=== PATIENT | female | born 1970 | race Caucasian/White ===

== ENCOUNTER 2020-01-15 08:47 | Outpatient (REF) | payer OTHER, SELFPAY ==
[2020-01-16 13:36] LABS: PTT (LAC) Screen 30 sec (< OR = 40)
[2020-01-17 10:52] LABS: Cardiolipin IgG Ab <14 GPL; Cardiolipin IgM Ab 17 MPL
== END 2020-01-15 08:48 | disposition home or self-care (01) ==
LOC: HO.LAB 08:47
PROVIDERS: PCP Internal Medicine; Visit Provider Psychiatry & Neurology Neurology
DX: I67.9 Cerebrovascular disease, unspecified (principal)
CPT/HCPCS: 36415; 81241; 85597; 85613; 85730; 86147

== ENCOUNTER 2021-03-11 08:07 | Outpatient (REF) | payer OTHER, SELFPAY ==
[2021-03-11 09:03] LABS: COVID-19 Test Positive (Negative)
== END 2021-03-11 08:08 | disposition home or self-care (01) ==
LOC: HO.LAB 08:07
PROVIDERS: Visit Provider Internal Medicine
DX: Z20.822 Contact with and (suspected) exposure to COVID-19 (principal)
CPT/HCPCS: 36415; 87635; C9803

== ENCOUNTER 2021-03-18 14:15 | Outpatient (REF) | payer OTHER, SELFPAY ==
[2021-03-18 15:59] LABS: Binax Internal Control QC Valid; Binax Now Covid-19 Ag Negative (Negative)
== END 2021-03-18 14:16 | disposition home or self-care (01) ==
LOC: HO.LAB 14:15
PROVIDERS: Visit Provider Internal Medicine
DX: Z20.822 Contact with and (suspected) exposure to COVID-19 (principal)
CPT/HCPCS: 36415; C9803

== ENCOUNTER 2024-04-21 16:48 | Outpatient (REF) | payer OTHER, SELFPAY ==
[2024-04-21] MEDS: gadobutroL 7.5 ML VIAL IVPUSH (17:35)
== END 2024-04-21 16:49 | disposition home or self-care (01) ==
LOC: HO.MRI 16:48
PROVIDERS: PCP Internal Medicine; Visit Provider Psychiatry & Neurology Neurology
DX: R27.0 Ataxia, unspecified (principal)
CPT/HCPCS: 70553; A9585

== ENCOUNTER → 2024-04-21 17:06 | Outpatient (BNV) | payer OTHER, SELFPAY | PROVIDERS: PCP Internal Medicine; Visit Provider Radiology Diagnostic Radiology | DX: R27.0 Ataxia, unspecified (principal) | CPT/HCPCS: 70553 ==

== ENCOUNTER 2024-06-14 09:23 | Day surgery (SDC) | payer OTHER, SELFPAY ==
--- OUTSIDE RECORDS SUMMARY | 2024-04-30 14:47 | XMS_ITS | Clinical Summary ---
Author Organization [facility] Address [address] [place] [address] Phone Care Team Providers Care Oak Tanner Name Role Phone Rosalind Sorensen MD Primary Care Prov ider Allergies No known active allergies Medications mometasone (NASONEX) 50 mcg/actuation nasal spray SPRAY 2 SPRAYS BY NASAL ROUTE DAILY 51 mL 4 Active ferrous sulfate 325 mg (65 mg elemental iron) tablet Take 1 tablet (325 mg total) by mouth 1 (one) time each day. Active levonorgestreL (MIRENA) 21 mcg/24hr (up to 8 yrs) 52 mg IUD 1 Device (1 each total) by intrauterine route 1 (one) time. 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 I explained that based on US report, Ddx includes cervical polyp, cervical fibroid, or cervical malignancy. Although the latter is less likely, it cannot be ruled out without at least a biopsy. I explained that MRI can give us a better idea of the etiology of this mass, but it will not give us a diagnosis. Explained that we could attempt to perform this in the office given it is visible with speculum exam, but that depending on the etiology and due to lower tone in the cervix, I have some concerns about significant bleeding which may be difficult to control in the office. She agreed with plan to proceed in the OR. I explained that I will assess the mass at the time of her procedure and will use my clinical discretion regarding whether it should just be biopsied followed by hysterectomy prn vs excised based on my impression and concern for bleeding. Given its size, I suspect it will more likely be biopsied unless it appears to be a broad based polyp. Explained it is not always clear what the mass is just by looking at it, but we will be judicious. I explained that her cervical mass may or may not be contributing to her heavy bleeding. Given she has started OCP with significant improvement in flow this past month, I suspect it may not be contributing. As such, if the mass returns benign, even if only able to sample and not remove it, a hysterectomy may not be necessary. She understood and agreed. I reviewed risks of the procedure including bleeding as discussed above with possible, although unlikely need for blood transfusion with inherent infectious and inflammatory risks, as well as risk of infection, uterine perforation, and/or damage to surrounding organs including bowel, bladder, blood vessels, and nerves. She voiced understanding and agreed. Consent was signed. White matter abnormality on MRI of brain 019 Iron deficiency anemia due to chronic blood loss 11/20/2018 Overview (02/01/2024): S/p transfusion x 2 on 12/25 prior to cervical myomectomy Last Assessment & Plan: Continue iron Menorrhagia with irregular cycle 11/20/2018 Overview (02/01/2024): Last Assessment & Plan: Given already heavier menstrual bleeding in the setting of therapeutic anticoagulation, I recommend we consider a progestin only method to stop bleeding and allow recovery of blood count. I explained this would likely best be accomplished with use of Provera 10 mg daily. In the long run, given her history and now contraindication to E2 use, she would be a good candidate for Mirena IUD. I explained that while her previous IUD was expelled, this may have been related to her submucosal fibroid and may not happen again. She was in agreement with this. She should also have her Hgb checked again today. I discussed this plan with Dr. Aguilar in Oncology at [facility] and he agrees. He will see her in the office within the next two days. Pt informed to call and arrange this and agrees. She will start Provera today and continue until we are able to place her Mirena IUD in the near future. IUD (intrauterine device) in place 06/17/2015 Overview (02/01/2024): Mirena 01/2019 Vitamin D deficiency 06/24/2011 Allergic rhinitis 03/09/2010 Encounters Date Type Department Care Team Description 04/26/2024 2:30 PM EST Treatment [address] [phone] Vivi Peralta, PT Neck pain (Primary Dx); Poor posture 04/19/2024 3:30 PM EST Nutrition Internal Medicine [address] [phone] Carla Cheema, TOMMY Obesity (BMI 30.0-34.9) (Primary Dx); Overweight 04/19/2024 2:30 PM EST Treatment [address] [phone] Vivi Peralta, PT Neck pain (Primary Dx); Poor posture 04/09/2024 3:59 PM EST - 04/09/2024 11:59 PM EST Hospital Encounter Radiology Department - [address] [phone] Encounter for screening mammogram for breast cancer Discharge Disposition: Home or Self Care 04/05/2024 2:45 PM EST Evaluation [address] [phone] Vivi Peralta, PT Neck pain (Primary Dx); Poor posture 03/01/2024 2:30 PM EST Treatment [facility] [address] [phone] Vivi Peralta, PT Low back pain, unspecified back pain laterality, unspecified chronicity, unspecified whether sciatica present (Primary Dx); Neck pain; Poor posture 02/07/2024 12:45 PM EST Office Visit [address] [phone] Delia Bowden PA Neck pain (Primary Dx); Chronic midline thoracic back pain 02/06/2024 Nurse Triage [address] [phone] Rosalind Carty MD Neck Pain 02/02/2024 2:30 PM EST Treatment [address] [phone] Vivi Peralta, PT Low back pain, unspecified back pain laterality, unspecified chronicity, unspecified whether sciatica present (Primary Dx) from Last 3 Months Immunizations Name Administration Dates Next Due Influenza Quadravalent, MDCK , 0.5ml, preservative free (Flucelvax) 6mo and older 11/22/2022,12/14/2021,12/28/2020,2018 Influenza Quadrivalent, 0.5m l, preservative free (Fluarix; FluLaval; Fluzone) ages 6mo and older (Afluria) 3yo and older 12/12/2019 Influenza trivalent, with preservative (Fluzone; Afluria) 6mo and older 11/27/2023,01/07/2016 Influenza, Unspecified 12/22/2018 Td Tetanus diptheria (Tdvax) 7yo and older 11/09/2005 Tdap Tetanus diptheria acell ular pertussis (Boostrix; Adacel) 7yo and older 11/22/2022,05/29/2012 Zoster recombinant (Shingrix ) 19yo and older 12/02/2022 Surgical History Surgery Date Site/Laterality Comments SECTION PROCEDURE: HISTORICAL DELIVERY; COMMENT: x1 EYE SURGERY Bilateral PROCEDURE: HISTORICAL EYE SURGERY; COMMENT: Lasik OTHER SURGICAL HISTORY PROCEDURE: [place] UNLISTED LAPAROSCOPY PROCEDURE UTERUS; COMMENT: fibroid removal Medical History Medical History Date Comments Allergic rhinitis 03/09/2010 DX:Allergic rh initis History of non-ST elevation myocardial infarction (NSTEMI) DX:History of non-ST el evation myocardial infarction (NSTEMI) History of pulmonary embolism 12/31/2018 DX :History of pulmonary embolism; COMMENT: Following hysteroscopic myomectomy 12/28/18, on OCP at the time. Per heme, anticoag x 6 mos then discontinue, finished treatment in 2020 due to not being able to see someone during COVID Iron deficiency anemia due t o chronic blood loss 11/20/2018 DX:Iron deficiency anemia du e to chronic blood loss; COMMENT: S/p transfusion x 2 on 12/25 prior to cervical myomectomy Family History Medical History Relation Name Comments No Known Problems Brother 1 No Known Problems Brother 2 No Known Problems Daughter Hypertension Father No Known Problems Maternal Grandfather No Known Problems Maternal Grandmother No Known Problems Mother No Known Problems Other Hypertension Paternal Grandfather Hypertension Paternal Grandmother No Known Problems Sister 1 No Known Problems Sister 2 Hypertension Sister 3 Other: Heart disease Sister 4 hypothy roidism Breast cancer Neg Hx Colon cancer Neg Hx Ovarian cancer Neg Hx Uterine cancer Neg Hx Relation Name Status Comments Brother 1 Alive Brother 2 Alive Daughter Father Alive htn Maternal Grandfather Maternal Grandmother Mother Alive foot problems Other Paternal Grandfather Paternal Grandmother Sister 1 Alive Sister 2 Alive Sister 3 Sister 4 Social History Tobacco Use Types Packs/Day Years Used Date Smoking Tobacco: Never Smokeless Tobacco: Never Tobacco Cessation:Counseling Given: Not Answered Alcohol Use Standard Drinks/Week Comments Yes 0 (1 standard drink = 0.6 oz pur e alcohol) Comments Unknown Sex and Gender Information Value Date Recorded Sex Assigned at Not on file Legal Sex Female 6:51 PM EST Gender Identity Not on file Sexual Orientation Not on file Obstetrics History Para Term AB IAB SAB Ectopic Multiple Livin g Live Births 2 2 2 2 Date Outcome GA Total Labor Labor/2nd/3rd Weight Sex Type Anes PTL Yoanna A1 A5 Name Clin Term Term Last Filed Vital Signs Vital Sign Reading Time Taken Comments Blood Pressure 98/61 02/07/2024 12:44 PM EST Pulse 77 02/07/2024 12:44 PM EST Temperature 36.8 ??C (98.3 ??F) 02/07/2024 12:[address] Respiratory Rate 15 02/07/2024 12:44 PM EST Oxygen Saturation - - Inhaled Oxygen Concentration - - Weight 78.9 kg (174 lb) 04/19/2024 4:11 PM EST Height 160 cm (5' 3 ) 04/19/2024 4:11 PM EST Body Mass Index 30.82 04/19/2024 4:11 PM EST Plan of Treatment Upcoming Encounters Date Type Department Care Team (Late st Contact Info) Description 05/01/2024 2:00 PM EST Office Visit Obstetrics and Gynecology [address] [phone] Virginia Vazquez CN [address] [place] [address] 05/03/2024 2:30 PM EST Treatment [facility] [address] [phone] Vivi Peralta, PT 05/17/2024 2:30 PM EST Treatment [address] [phone] Vivi Peralta, PT 05/24/2024 2:30 PM EDT Treatment [facility] [address] [phone] Vivi Peralta, PT 08/16/2024 3:30 PM EDT Nutrition Internal Medicine [facility] [address] [phone] Carla Cheema, RD [address] [place] [phone] 12/02/2024 3:00 PM EDT Office Visit Adult Medicine [facility] - [address] [phone] Rosalind Sorensen MD [address] [place] [address] Health Maintenance Due Date Last Done Comments Hepatitis B Vaccines (1 of 3 - 19+ 3-dose series) 1989 Pneumococcal Vaccine: 50+ Years (1 of 1 - PCV) 2020 Depression Screening 02/19/2022 Social Influencers of Health Screening 02/19/2022 Zoster Vaccines (2 of 2) 01/27/2023 12/02/2022 COVID-19 Vaccine ( season) 2023 12/02/2022, 03/29/2021, 07/23/2020, Additional history exists Breast Cancer Screening 04/09/2026 04/09/19 25, 03/29/2023, 03/28/2022, Additional history exists Colorectal Cancer Screening: Colonoscopy 09/07/2026 09/07/2016 Cervical Cancer Screening: HPV 06/04/2027 06/03/2022 Cholesterol Screening (Lipid Panel) 04/26/2029 04/26/2024, 12/04/2023, 12/04/2023 DTaP,Tdap,and Td Vaccines (4 - Td or Tdap) 11/22/2032 11/22/2022, 05/29/2012, 11/09/2005 HIV Screening Completed 06/03/2022 Hepatitis C Screening Completed 11/22/2022 Influenza Vaccine Completed 11/27/2023, , 12/14/2021, Additional history exists HIB Vaccines Aged Out No longer eligi ble based on patient's age to complete this topic HPV Vaccines Aged Out No longer eligi ble based on patient's age to complete this topic Hepatitis A Vaccines Aged Out No long er eligible based on patient's age to complete this topic IPV Vaccines Aged Out No longer eligi ble based on patient's age to complete this topic MMR Vaccines Aged Out No longer eligi ble based on patient's age to complete this topic Meningococcal ACWY Vaccine Aged Out N o longer eligible based on patient's age to complete this topic Meningococcal B Vacine Aged Out No lo nger eligible based on patient's age to complete this topic Pneumococcal Vaccine: Pediatrics (0 to 5 Years) and At-Risk Patients (6 to 64 Years) Aged Out No longer eligible based on patient's age to complete this topic RSV Immunization Patients Under 20 months Aged Out No longer eligible based on patient's age to complete this topic Varicella Vaccines Aged Out No longer eligible based on patient's age to complete this topic Procedures Procedure Name Priority Date/Time Associated Diagnosis Comments LUPUS ANTICOAGULANT WITH REFLEX TO MIXING STUDIES Routine 04/26/2024 8:02 AM EST Abnormal MRI of the head TREPONEMA PALLIDUM ANTIBODY WITH REFLEX TO RPR AND PARTICLE AGGLUTINATION Routine 04/26/2024 8:02 AM EST Abnormal MRI of the head VIDAL IFA WITH TITER AND PATTERN Routine 04/26/2024 8:02 AM EST Abnormal MRI of the head LIPID PANEL WITH REFLEX TO DIRECT LDL Routine 04/26/2024 8:02 AM EST Abnormal MRI of the head CARDIOLIPIN ANTIBODY Routine 04/26/2024 8:02 AM EST Abnormal MRI of the head MG MAMMO DIGITAL SCREENING W ASHOK BILAT Routine 04/09/2024 4:22 PM EST Encounter for screening mammogram for breast cancer HEPATITIS C SCREENING Routine 11/22/2022 HPV Routine 06/03/2022 HIV SCREENING Routine 06/03/2022 COLONOSCOPY Routine 09/07/2016 from Last 3 Months or Most Recently Relevant to Health Maintenance Results * Treponema pallidum antibody with reflex to RPR and particle agglutination (04/26/2024 8:02 AM EST) T. Pallidum Antibodies Negative Negative LAB CHEMISTRY METHOD 04/26/2024 10:36 AM EST [facility] Blood Venous blood specimen / Unknown Venipuncture / Unknown 04/26/2024 8:02 AM EST 04/26/2024 8:02 AM EST Jason Carrion MD LAB BLOOD ORDERABLES Final Result [facility] [address] [place] [address], [place] [phone] * (ABNORMAL) Lipid panel with reflex to direct LDL (04/26/2024 8:02 AM EST) [facility] Cholesterol 180 0 - 200 mg/dL LAB CHEMISTRY METHOD 04/26/2024 10:23 AM EST [facility] Triglycerides 93 0 - 150 mg/dL LAB CHEMISTRY METHOD 04/26/2024 10:23 AM [facility] HDL 44 >=40 mg/dL LAB CHEMISTRY METHOD 04/26/2024 10:23 AM [facility] LDL Calculated 117(H) 0 - 100 mg/dL LAB CHEMISTRY METHOD 04/26/2024 10:23 AM [facility] VLDL Cholesterol Amado 18.6 mg/dL LAB CHEMISTRY METHOD 04/26/2024 10:23 AM [facility] Non HDL Chol. (LDL+VLDL) 136 <145 mg/dL LAB CHEMISTRY METHOD 04/26/2024 10:23 AM [facility] Chol/HDL Ratio 4.1 0.0 - 4.4 LAB CHEMISTRY METHOD 04/26/2024 10:23 AM [facility] Blood Venous blood specimen / Unknown Venipuncture / Unknown 04/26/2024 8:02 AM EST 04/26/2024 8:02 AM EST Jason Carrion MD LAB BLOOD ORDERABLES Final Result [facility] [address] [place] [address], [place] [phone] * VIDAL IFA with titer and pattern (04/26/2024 8:02 AM EST) VIDAL Negative Negative 04/26/2024 1:23 PM EST [facility] Blood Venous blood specimen / Unknown Venipuncture / Unknown 04/26/2024 8:02 AM EST 04/26/2024 8:02 AM EST Jason Carrion MD LAB BLOOD ORDERABLES Final Result [facility] [address] [place] [address], [place] [phone] * Lupus anticoagulant with reflex to mixing studies (04/26/2024 8:02 AM EST) APTT 41 <43 Sec(s) 04/30/2024 12:48 PM EST [facility] aPTT Mix 1:1 NA Sec(s) 04/30/2024 12:48 PM EST [facility] Hexagonal Phase Neutralization NA 04/30/2024 12:48 PM EST [facility] Dilute Colt Viper Venom 33 <44 Sec(s) 04/30/2024 12:48 PM EST [facility] DRVVT 1:1 Mix NA Sec(s) 04/30/2024 12:48 PM EST [facility] DRVVT Confirmation NA 2024 12:48 PM EST [facility] Interpretation SEE BELOW 04/30/2024 12:48 PM EST [facility] Comment: Lupus anticoagulant not detected. Test performed at [facility], [address] , [place], [place] ??[address] ? [phone] Saniya Galeana MD, PhD - Forensic Photographer Blood Venous blood specimen / Unknown Venipuncture / Unknown 04/26/2024 8:02 AM EST 04/26/2024 8:02 AM EST Jason Carrion MD LAB BLOOD ORDERABLES Final Result [facility] [address] [place] [address] * Cardiolipin antibody (04/26/2024 8:02 AM EST) Cardiolipin Antibody Screen Negative Negative LAB CHEMISTRY METHOD 04/29/2024 10:15 AM EST [facility] Blood Venous blood specimen / Unknown Venipuncture / Unknown 04/26/2024 8:02 AM EST 04/26/2024 8:02 AM EST Jason Carrion MD LAB BLOOD ORDERABLES Final Result [facility] [address] [place] [address], [place] [phone] * MG Mammo Digital Screening w Ashok bilat (04/09/2024 4:22 PM EST) Anatomical Region Laterality Modality Breast Bilateral Mammography 04/10/2024 6:24 PM EST Impressions 04/10/2024 6:26 PM EST No mammographic evidence of malignancy. BI-RADS CATEGORY: 1 - NEGATIVE RECOMMENDATION: Screening bilateral mammogram is recommended in 1 year. Mammo Location: [facility], [address] [place] [address], [id number], . -------- FINAL REPORT -------- Dictated By: Kyra Alejo Dictated Date: 04/10/2024 18:24 ET Assigned Physician: Kyra Alejo Reviewed and Electronically Signed By: Kyra Alejo Signed Date: 04/10/2024 18:26 ET Workstation ID: [id number] Transcribed By: Self Edit Transcribed Date: 04/10/2024 18:24 ET Narrative 04/10/2024 6:26 PM EST Bilateral screening mammogram. CLINICAL: 53 years old, Female, routine annual exam. COMPARISON: Prior mammograms, latest from 03/29/2023 ?? TECHNIQUE: Bilateral MLO and CC views were obtained digitally with 2-D C views and 3-D mammogram (digital breast tomosynthesis). Computer-aided detection was utilized in evaluation of this exam (CAD). FINDINGS: There is no evidence of suspicious mass or architectural distortion. ??No worrisome calcifications are evident. ??There has been no significant change from prior exam(s). ?? BREAST DENSITY: C - The breasts are heterogeneously dense which may obscure small masses. Procedure Note Kyra Alejo MD - 04/10/2024 Bilateral screening mammogram. CLINICAL: 53 years old, Female, routine annual exam. COMPARISON: Prior mammograms, latest from 03/29/2023 TECHNIQUE: Bilateral MLO and CC views were obtained digitally with 2-D Cviews and 3-D mammogram (digital breast tomosynthesis). Computer-aideddetection was utilized in evaluation of this exam (CAD). FINDINGS: There is no evidence of suspicious mass or architectural distortion. Noworrisome calcifications are evident. There has been no significantchange from prior exam(s). BREAST DENSITY: C - The breasts are heterogeneously dense which mayobscure small masses. IMPRESSION: No mammographic evidence of malignancy. BI-RADS CATEGORY: 1 - NEGATIVE RECOMMENDATION: Screening bilateral mammogram is recommended in 1 year. Mammo Location: [facility], [address] [place] [address], [id number], . -------- FINAL REPORT -------- Dictated By: Kyra Alejo Dictated Date: 04/10/2024 18:24 ET Assigned Physician: Kyra Alejo Reviewed and Electronically Signed By: Kyra Alejo Signed Date: 04/10/2024 18:26 ET Workstation ID: [id number] Transcribed By: Self Edit Transcribed Date: 04/10/2024 18:24 ET Rosalind Sorensen MD IM BI PROCEDURES Final Result * Hepatitis C Screening (11/22/2022) Hepatitis C Screening abstracted Historical Provider HEALTH MAINTENANCE Final Result * Cervical Cancer Screening: HPV (06/03/2022) Cervical Cancer Screening: HPV abstracted, negative Historical Provider HEALTH MAINTENANCE Final Result * HIV Screening (06/03/2022) HIV Screening abstracted Historical Provider HEALTH MAINTENANCE Final Result * Colonoscopy (09/07/2016) Colonoscopy abstracted, no interpretation Anatomical Region Laterality Modality Other Historical Provider HEALTH MAINTENANCE Final Result from Last 3 Months or Most Recently Relevant to Health Maintenance Insurance [facility] Care Teams Oak Tanner Relationship Specialty Start Date End Date Rosalind Sorensen MD [address] [place] [id number] PCP - General Internal Medicine 10/11/21
--- OUTSIDE RECORDS SUMMARY | 2024-04-30 14:47 | XMS_ITS | Encounter Summary ---
Author Organization [employer] Address [address] [place] [address] Care Team Providers Care Manager Highway Name Role Phone Rosalind Sorensen MD Primary Care Prov ider Reason for Visit * Consultation (Routine) - Authorized Specialty Diagnoses / Procedures Referred By Suhail garcía Referred To Contact Physical Therapy Diagnoses Neck pain Poor posture Delia Bowden PA [address] [place] [address] Phone: tel: fax: Referral ID Status Reason Start Date Expiration Date Visits Requested Visits Authorized [id number] Authorized Specialty Services Required 02/19/2024 02/18/2025 25 25 Encounter Details Date Type Department Care Team (Late st Contact Info) Description 04/26/2024 2:30 PM EST Treatment [facility] Outpatient [address] [phone] Vivi Peralta, PT Neck pain (Primary Dx); Poor posture Social History Tobacco Use Types Packs/Day Years Used Date Smoking Tobacco: Never Smokeless Tobacco: Never Alcohol Use Standard Drinks/Week Comments Yes 0 (1 standard drink = 0.6 oz pur e alcohol) Comments Unknown Sex and Gender Information Value Date Recorded Sex Assigned at Not on file Legal Sex Female 6:51 PM EST Gender Identity Not on file Sexual Orientation Not on file documented as of this encounter Progress Notes * Vivi Peralta PT - 04/26/2024 2:30 PM EST [facility] - Outpatient PHYSICAL THERAPY DAILY TREATMENT NOTE - OP Date: 04/26/2024 Visit Number: 3 Patient Name: Rosalind Cummins : 1970 Age: 53 y.o. Gender: female Diagnosis: ICD-10-CM ICD-9-CM 1. Neck pain M54.2 723.1 2. Poor posture R29.3 781.92 Date of Onset/Surgery: 01/04/2024 Referring Provider: Delia Bowden PA Insurance: Payor: [employer] [facility] [place] [employer] / Plan: [facility] FUNDED HMO / Product Type: *No Product type* / Patient Identified by: Vivi Peralta PT Language: Speaks and understands Wolof as preferred language with no cook railroad required Medications: Current Outpatient Medications on File Prior to Visit Medication Sig Dispense Refill ferrous sulfate 325 mg (65 mg elemental iron) tablet Take 1 tablet (325 mg total) by mouth 1 (one) time each day. levonorgestreL (MIRENA) 21 mcg/24hr (up to 8 yrs) 52 mg IUD 1 Device (1 each total) by intrauterineroute 1 (one) time. mometasone (NASONEX) 50 mcg/actuation nasal spray SPRAY 2 SPRAYS BY NASAL ROUTE DAILY 51 mL 0 No current facility-administered medications on file prior to visit. Allergies: has No Known Allergies. Precautions: none Fall risk: No SUBJECTIVE Subjective Report: She has had a cold this week. Not doing stretches as much because of that so hassome tightness/pain in neck. Chart Reviewed: Yes Pain: TREATMENT INTERVENTION: Therapeutic Exercise: (20 min) UBE x 4 min 2/2 Rows orange theraband 2 x 10 Shoulder extensions orange theraband 2 x 10 Pec stretch in door 4 x 15-20 sec Seated chin tucks x 5, 5 sec hold Manual Therapy: Seated STM to bilateral UT, and bilateal UT and LS TP release (8 min total) Home exercise program- Access Code: [email or web address] - Seated Cervical Retraction - 1-2 x daily - 7 x weekly - 1 sets - 10 reps - 5s hold - Doorway Pec Stretch at 90 Degrees Abduction - 1-2 x daily - 7 x weekly - 1 sets - 3-4 reps - 15-20s hold - Gentle Levator Scapulae Stretch - 1-2 x daily - 7 x weekly - 1 sets - 3 reps - 15-20s hold - Standing Shoulder Row with Anchored Resistance - 1 x daily - 3-7 x weekly - 2 sets - 10 reps - Shoulder extension with resistance - Neutral - 1 x daily - 3-7 x weekly - 2 sets - 10 reps ASSESSMENT/Response to Treatment Good Feeling slightly better and better cervical SB ROM. R UT TP noted and got better with manual therapy. Practice bands again and if feel alright, will update home exercise program next session. Patient Education: Education provided: update home exercise program Education Provided To: Patient utilizing Explanation and Printed Material mode(s) of education Response to Education: Verbal Understanding PLAN POC Development/Review: No Change in the Plan of Care; Participants: Patient Interventions Time Entry: Modalities: Therapeutic procedures: Manual Therapy Time Entry: 8 Therapeutic Exercise Time Entry: 20 Total Treatment Time: 28 Documentation completed by Vivi Peralta PT documented in this encounter Plan of Treatment Upcoming Encounters Date Type Department Care Team (Late st Contact Info) Description 05/01/2024 2:00 PM EST Office Visit Obstetrics and Gynecology - [address] [phone] Virginia Vazquez, [address] [address] 05/03/2024 2:30 PM EST Treatment [address] [phone] Vivi Peralta, PT 05/17/2024 2:30 PM EST Treatment [address] [phone] Vivi Peralta, PT 05/24/2024 2:30 PM EDT Treatment [address] [phone] Vivi Peralta, PT 08/16/2024 3:30 PM EDT Nutrition Internal Medicine - [place] [address] [facility] 200 [place] [phone] Carla Cheema, RD 175 [place] [phone] 12/02/2024 3:00 PM EDT Office Visit Adult Medicine [facility] [address] [place] [phone] Rosalind Sorensen MD [address] [place] [phone] documented as of this encounter Visit Diagnoses Diagnosis Neck pain- Primary Cervicalgia Poor posture Abnormal posture documented in this encounter Care Teams Manager Highway Relationship Specialty Start Date End Date Rosalind Sorensen MD [address] [place] [address] PCP - General Internal Medicine 10/11/21 documented as of this encounter
--- OUTSIDE RECORDS SUMMARY | 2024-04-30 14:47 | XMS_ITS | Encounter Summary ---
Author Organization [employer] Address [address] [place] [address] Care Team Providers Care Livestock Trader Name Role Phone Rosalind Sorensen MD Primary Care Prov ider Reason for Visit * Reason Comments Obesity * Consultation (Routine) - Closed Specialty Diagnoses / Procedures Referred By Suhail garcía Referred To Contact Nutrition Diagnoses Overweight Herminia Ardon MD [address] [place] [address] Phone: tel: fax: Carla Cheema RD [address] [place] [address] Phone: tel: Referral ID Status Reason Start Date Expiration Date V isits Requested Visits Authorized [id number] Closed Specialty Services Required 12/30/2023 12/29/2024 1 1 Encounter Details Date Type Department Care Team (Late st Contact Info) Description 04/19/2024 3:30 PM EST Nutrition Internal Medicine - [place] 175 [facility] [address] [place] [phone] 175 [place] [address] Obesity (BMI 30.0-34.9) (Primary Dx); Overweight Social History Tobacco Use Types Packs/Day Years [...] on file documented as of this encounter Last Filed Vital Signs Vital Sign Reading Time Taken Comments Blood Pressure - - Pulse - - Temperature - - Respiratory Rate - - Oxygen Saturation - - Inhaled Oxygen Concentration - - Weight 78.9 kg (174 lb) 04/19/2024 4:11 PM EST Height 160 cm (5' 3 ) 04/19/2024 4:11 PM EST Body Mass Index 30.82 04/19/2024 4:11 PM EST documented in this encounter Progress Notes * Carla Cheema RD - 04/19/2024 3:30 PM EST Images from the original note were not included. Contact info: Carla Cheema MS, RDN, LDN Registered Dietitian - Adult Medicine [address] [place] [address] [email or web address] W: [phone] Patient goals: Exercise: include as tolerated Hydration: goal to include 7-8 cups fluids daily Sleep: aim for 7+ hours restful sleep nightly Dietary pattern: include protein and fiber every 3-4 hours to support active metabolism At all meals be sure to include protein foundation (lean animal-based OR plant- based options) and balance plate with proper portion (1/4 plate) whole grain or starch (3-5g fiber per serving) and natural and vibrant color from fruit or vegetable. Fruit recommendations due to more fiber (edible skin and seeds): 1. All berries 2. Clinch, apples, pears, peaches, plums, etc. 3. Melons such as honeydew, canteloupe, watermelon, etc. 4. Tropical fruits: banana (1/2 only), chepe, pineapple, etc. Low sugar yogurts without sugar alternatives: Siggi's, Chobani less sugar, Fage etc. Vegetables 2x/day 200kcal protein shake in AM after workouts Goal to eat within 1 hour after workout; preference not to skip breakfast on these days [email or web address] * Carla Cheema RD - 04/19/2024 3:30 PM EST INITIAL NUTRITION CONSULT Date of Service: 04/19/2024 Referred by: Dr. Ardon Referral reason: obesity Background info: Pt is a 53 y.o. y/o female who seeks weight loss support. Pt also presents with low D, HANNAH, h/o NSTEMI. Pt attended today's appointment alone. 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 Spouse Readiness to change the diet: Yes Previously met with a dietitian/operations lead: No Alcohol: Yes 2x/week Smoking: No Family History: Family History Problem Relation Name Age of Onset No Known Problems Mother Hypertension Father No Known Problems Sister No Known Problems Sister No Known Problems Brother No Known Problems Brother Hypertension Paternal Grandfather Hypertension Paternal Grandmother Hypertension Sister Other (Other: Heart disease) Sister hypothyroidism No Known Problems Daughter No Known Problems Maternal Grandmother No Known Problems Maternal Grandfather No Known Problems Other Breast cancer Neg Hx Ovarian cancer Neg Hx Colon cancer Neg Hx Uterine cancer Neg Hx Nutrition & Lifestyle History: What are your main motivators for changing your diet? to help resolve comorbidities What, if any, changes have you tried to make in regard to your diet in the past? Single diet attempt What obstacles have you faced or might you face when trying to improve your diet? Prefering convenience GI issues: Constipation, bloating Food Allergies/Intolerances: none reported Food dislikes: vegetables How would you rate your energy? Fair How would you rate your quality of sleep? Fair How many hours of sleep do you get per night? 5 hours Physical Activity Exercise: Yes, TM walking, machines Frequency: 4 days per week, 30 minutes in duration Barriers to exercise? Back issues Anthropometrics: Weight: Wt Readings from Last 1 Encounters: 04/19/24 78.9 kg (174 lb) Height: Ht Readings from Last 1 Encounters: 04/19/24 1.6 m (63 ) Body mass index is 30.82 kg/m??. (obesity - grade I) Diet Recall: Vit/mineral supplement: iron, turmeric, MVI Wake-up: 5am 9am Breakfast: muffin and 1 cup regular coffee w/ whole milk, 2 sugar packets; 12-1pm Lunch: turkey (sometimes with salami) and cheese sandwich with sheldon, lettuce and tomato on wheat bread; less chips, cranberry juice Afternoon Snack: 3 oz nuts, chips or tea (honey) 8:O0pm Dinner: limited vegetables, salmon, sprouts, steak tips OR hot dog and salad, oil/vinegar ORkale and sausage soup, carrots, crackers PM snacking: chocolate Beverages: Water, cran soda, Tea, cranberry juice, and Coffee Dines out: 1-2 x weekly Monday brunch, Monday pizza and Monday fast food Pace of eating: not discussed Lab History: Lab Results Component Value Date HGBA1C 4.8 11/13/2018 CHOL 188 12/04/2023 LDL 119 (A) 12/04/2023 HDL 45 12/04/2023 TRIG 121 12/04/2023 Medications: Current Outpatient Medications Medication Instructions ferrous sulfate 325 mg (65 mg elemental iron) tablet 1 tablet, oral, Daily levonorgestreL (MIRENA) 21 mcg/24hr (up to 8 yrs) 52 mg IUD 1 each, intrauterine, Once mometasone (NASONEX) 50 mcg/actuation nasal spray SPRAY 2 SPRAYS BY NASAL ROUTE DAILY COMPARATIVE STANDARDS AND ESTIMATED NEEDS Kilocalorie Need: 1900kcals OR 1400kcals to lose 1-2lb/wk Method used for estimating needs: [place] [address] [place] Equation x activity factor (1.375) Protein: 53-70g (15-20% kcals) CHO: 155g (45% kcals) Fluid: 1584mls Nutrition assessment: Pt is 53 y.o. Female who may skip breakfast, include midday lunch, occasionally an afternoon snack and balanced dinner. Few SSBs. Vegetables 1x/day recently. Pt is avoiding certain food/drink which may be bladder irritants. Exercise is now included appropriately. Hydration subadequate per pt report. Nutrition Diagnoses: Obesity related to history of excess energy intake as evidenced by BMI of 30.82. Nutrition Interventions: Discussed importance of eating at least 3 meals per day and the impact on metabolism, Discussed the need to have protein with each meal and snack, Discussed the plate method and balanced meals, Discussed the importance of drinking enough water, and inclusion of vegetablesEnergy Balance: Basic health eating, Skipped meals, and Healthy snacks Fluid Intake: Inadequate hydration Protein Intake: Protein each meal, Liquid protein supplements, Non- animal proteins, and Lean protein sources Fat and Cholesterol Intake: on Detrimental fats Carbohydrate and Fiber Intake: PlateMethod and Increase Fiber Intake Nutrition Education: Discussed the importance of fueling the body properly with appropriate foods. We reviewed the plate method to educate on food groups, portion sizes and number of servings recommended daily. Discussed strategies to consume more vegetables in diet which do not require much cooking or food preparation. Highlighted benefits of consuming whole grains instead of processed grains regarding overall nutrition and satiety. Types and amounts of fruit and vegetables were identified andencouraged. Proper meal planning was discussed, specifically including protein and quality carbohydrates at each meal, with the need for colorful produce making up 1/2 the plate or bowl. Pt was discouraged from skipping meals and instead encouraged to include smaller, portion-controlled meals and/or snacks every 3-4 hours to support metabolism, energy levels and weight loss efforts. Snacks are encouraged only if warranted, and should be intentional and portioned and should includeprotein and fiber-rich carbohydrate. Hydration was reviewed in that urine should be light in color and concentration. Fluids should include water, unsweetened teas, seltzers, low-fat dairy, etc and should limit juices, sodas and other sugar-sweetened beverages. Exercise was reviewed and encouraged as tolerated to support overall health and weight loss goals. We also discussed the importance of strength training to improve metabolic rate. Literature Provided: Using the plate method for a balanced meal plan handout, Goal Sheets, RD Contact Information, and Wt Management Tips handout Monitoring/Evaluation: Monitor weight, Monitor progress towards nutrition goals, and Monitor compliance with program overall Reviewed current weight, checked food recall, reviewed labs and questioned patient to confirm understanding and clarifications provided as needed. Patient goals: Exercise: include as tolerated Hydration: goal to include 7-8 cups fluids daily Sleep: aim for 7+ hours restful sleep nightly Dietary pattern: include protein and fiber every 3-4 hours to support active metabolism At all meals be sure to include protein foundation (lean animal-based OR plant- based options) and balance plate with proper portion (1/4 plate) whole grain or starch (3-5g fiber per serving) and natural and vibrant color from fruit or vegetable. Fruit recommendations due to more fiber (edible skin and seeds): 1. All berries 2. Clinch, apples, pears, peaches, plums, etc. 3. Melons such as honeydew, canteloupe, watermelon, etc. 4. Tropical fruits: banana (1/2 only), chepe, pineapple, etc. Low sugar yogurts without sugar alternatives: Siggi's, Chobani less sugar, Fage etc. Vegetables 2x/day 200kcal protein shake in AM after workouts Goal to eat within 1 hour after workout; preference not to skip breakfast on these days [email or web address] Follow-Up RD to see patient for follow-up in 4 months. Number of MEU accrued after this appointment ( year total): 4 MEU (60 minutes) Visit Time: The total time of this visit was 60 mins minutes of which we spent 60 mins minutes in direct [id number] consultation for nutrition counseling. Carla Cheema MS, RDN, LDN Registered Dietitian NUTRITION SERVICES documented in this encounter Plan of Treatment Upcoming Encounters Date Type Department Care Team (Late st Contact Info) Description 05/01/2024 2:00 PM EST Office Visit Obstetrics and Gynecology - [address] [phone] Virginia Vazquez CNM [address] [place] [address] 05/03/2024 2:30 PM EST Treatment [address] [phone] Vivi Peralta, TAYO 05/17/2024 2:30 PM EST Treatment [facility] [address] [phone] Vivi Peralta, PT 05/24/2024 2:30 PM EDT Treatment [facility] [address] [phone] Vivi Peralta, PT 08/16/2024 3:30 PM EDT Nutrition Internal Medicine - [place] 175 [facility] 200 [place] [phone] Carla Cheema, RD 175 [place] [phone] 12/02/2024 3:00 PM EDT Office Visit Adult Medicine [address] [phone] Rosalind Sorensen MD [address] [place] [address] documented as of this encounter Visit Diagnoses Diagnosis Obesity (BMI 30.0-34.9)- Primary Overweight documented in this encounter Orders Outpatient Referral Count Last Ordered Date Ordered Date AMB REFERRAL TO NUTRITION SERVICES 1 2024 documented in this encounter Care Teams Livestock Trader Relationship Specialty Start Date End Date Rosalind Sorensen MD [address] [place] [address] PCP - General Internal Medicine 10/11/21 documented as of this encounter
--- OUTSIDE RECORDS SUMMARY | 2024-04-30 14:47 | XMS_ITS | Encounter Summary ---
Author Organization [employer] Address [address] [place] [address] Care Team Providers Care Alteration Specialist Name Role Phone Rosalind Sorensen MD Primary Care Prov ider Reason for Visit * Imaging (Routine) - Pending Review Specialty Diagnoses / Procedures Referred By Suhail garcía Referred To Contact Radiology Diagnoses Encounter for screening mammogram for breast cancer Procedures MG Mammo Digital Screening w Ashok bilat MG Mammo Digital Screening w Ashok bilat Rosalind Sorensen MD [address] [place] [address] Phone: tel: fax: [facility] Referral ID Status Reason Start Date Expiration Date V isits Requested Visits Authorized [id number] Pending Review 12/28/2023 12/27/2024 1 1 Encounter Details Date Type Department Care Team (Latest Contact Info) Description 04/09/2024 3:59 PM EST - 04/09/2024 11:59 PM EST Hospital Encounter Radiology Department - [address] [phone] Encounter for screening mammogram for breast cancer Discharge Disposition: Home or Self Care Social History Tobacco Use Types Packs/Day Years [...] on file documented as of this encounter Medications at Time of Discharge ferrous sulfate 325 mg (65 mg elemental iron) tablet Take 1 tablet (325 mg total) by mouth 1 (one) time each day. levonorgestreL (MIRENA) 21 mcg/24hr (up to 8 yrs) 52 mg IUD 1 Device (1 each total) by intrauterine route 1 (one) time. mometasone (NASONEX) 50 mcg/actuation nasal spray SPRAY 2 SPRAYS BY NASAL ROUTE DAILY 51 mL 02/01/2024 documented as of this encounter Discharge Disposition Disposition Code Departure Means Destination Home or Self Care documented in this encounter Plan of Treatment Upcoming Encounters Date Type Department Care Team (Late st Contact Info) Description 05/01/2024 2:00 PM EST Office Visit Obstetrics and Gynecology [address] [phone] Virginia Vazquez CNM [address] [place] [address] 05/03/2024 2:30 PM EST Treatment [address] [phone] Vivi Peralta, PT 05/17/2024 2:30 PM EST Treatment [address] [phone] Vivi Peralta, PT 05/24/2024 2:30 PM EDT Treatment [address] [phone] Vivi Peralta, PT 08/16/2024 3:30 PM EDT Nutrition Internal Medicine [address] [phone] Carla Cheema, TOMMY 175 [place] [phone] 12/02/2024 3:00 PM EDT Office Visit Adult [address] [phone] Rosalind Sorensen MD [address] [place] [address] documented as of this encounter Procedures Procedure Name Priority Date/Time Associated Diagnosis Comments MG MAMMO DIGITAL SCREENING W ASHOK BILAT Routine 04/09/2024 4:22 PM EST Encounter for screening mammogram for breast cancer documented in this encounter Results * MG Mammo Digital Screening w Ashok bilat (04/09/2024 4:22 PM EST) Anatomical Region Laterality Modality Breast Bilateral Mammography 04/10/2024 6:24 PM EST Impressions 04/10/2024 6:26 PM EST No mammographic evidence of malignancy. BI-RADS CATEGORY: 1 - NEGATIVE RECOMMENDATION: Screening bilateral mammogram is recommended in 1 year. Mammo Location: [facility], [address] [place] [address], [address], . -------- FINAL REPORT -------- Dictated By: Kyra Alejo Dictated Date: 04/10/2024 18:24 ET Assigned Physician: Kyra Alejo Reviewed and Electronically Signed By: Kyra Alejo Signed Date: 04/10/2024 18:26 ET Workstation ID: [id number] Transcribed By: Self Edit Transcribed Date: 04/10/2024 [...] is recommended in 1 year. Mammo Location: [facility], [address] [place] [address], [address], . -------- FINAL REPORT -------- Dictated By: Kyra Alejo Dictated Date: 04/10/2024 18:24 ET Assigned Physician: Kyra Alejo Reviewed and Electronically Signed By: Kyra Alejo Signed Date: 04/10/2024 18:26 ET Workstation ID: [id number] Transcribed By: Self Edit Transcribed Date: 04/10/2024 18:24 ET us Rosalind Sorensen MD IMG BI PROCEDURES Final Result documented in this encounter Visit Diagnoses Diagnosis Encounter for screening mammogram for breast cancer documented in this encounter Care Teams Alteration Specialist Relationship Specialty Start Date End Date Rosalind Sorensen MD [address] [place] [address] PCP - General Internal Medicine 10/11/21 documented as of this encounter
--- OUTSIDE RECORDS SUMMARY | 2024-04-30 14:47 | XMS_ITS | Encounter Summary ---
Author Organization [email or web address] Address [address] [place] [address] Care Team Providers Care Lacquerer Name Role Phone Rosalind Sorensen MD Primary Care Prov ider Reason for Visit * Consultation (Routine) - Authorized Specialty Diagnoses / Procedures Referred By Suhail garcía Referred To Contact Physical Therapy Diagnoses Neck pain Poor posture Delia Bowden PA [address] [place] [address] Phone: tel: fax: Referral ID Status Reason Start Date Expiration Date Visits Requested Visits Authorized [id number] Authorized Specialty Services Required 02/19/2024 02/18/2025 25 25 Encounter Details Date Type Department Care Team (Late st Contact Info) Description 04/19/2024 2:30 PM EST Treatment [facility] Outpatient [address] [phone] Vivi Peralta, PT Neck pain (Primary Dx); [...] Progress Notes * Vivi Peralta PT - 04/19/2024 2:30 PM EST [facility] - Outpatient PHYSICAL THERAPY DAILY TREATMENT NOTE - OP Date: 04/19/2024 Visit Number: 2 Patient Name: Rosalind Cummins : 1970 Age: 53 y.o. Gender: female Diagnosis: ICD-10-CM ICD-9-CM 1. Neck pain M54.2 723.1 2. Poor posture R29.3 781.92 Date of Onset/Surgery: 01/04/2024 Referring Provider: Delia Bowden PA Insurance: Payor: [employer] [facility] [employer] / Plan: [facility] FUNDED HMO / Product Type: *No Product type* / Patient Identified by: Vivi Peralta PT Language: Speaks and understands Kiswahili as preferred language with no japanese interpreter required Medications: Current Outpatient Medications on File [...] none Fall risk: No SUBJECTIVE Subjective Report: Has an awareness of neck discomfort. Does feel a little better compared to last session. Chart Reviewed: Yes Pain: 10 TREATMENT INTERVENTION: Therapeutic Exercise: UBE x 4 min 2/2 Supine chin tucks x 10, 5 sec hold Seated chin tucks x 10, 5 sec hold Seated levator scap stretch 3 x 15 sec each Pec stretch in door 4 x 15-20 sec Rows red theraband x 10-15 Shoulder extensions red theraband x 10 Manual Therapy: Seated STM to bilateral UT, R UT pin and stretch x 5, R UT TP release (5 min total) Home exercise program- Access Code: [email or web address] - Seated Cervical Retraction - 1-2 x [...] sets - 3 reps - 15-20s hold ASSESSMENT/Response to Treatment Good Feeling slightly better and better cervical SB ROM. R UT TP noted and got better with manual therapy. Practice bands again and if feel alright, will update home exercise program next session. Patient Education: Education provided: continue home exercise program Education Provided To: Patient utilizing Explanation mode(s) of education Response to Education: Verbal Understanding PLAN POC Development/Review: No Change in the Plan of Care; Participants: Patient Interventions Time Entry: Modalities: Therapeutic procedures: Therapeutic Exercise Time Entry: 25 Total Treatment Time: 30 Documentation completed by Vivi Peralta PT documented in this encounter Plan of Treatment Upcoming Encounters Date Type Department Care Team (Late st Contact Info) Description 05/01/2024 2:00 PM EST Office Visit Obstetrics and Gynecology - [address] [phone] Virginia Vazquez, [address] [address] 05/03/2024 2:30 PM EST Treatment [address] [phone] Vivi Peralta, PT 05/17/2024 2:30 PM EST Treatment [address] [phone] Vivi Peralta, PT 05/24/2024 2:30 PM EDT Treatment [address] [phone] Vivi Peralta, PT 08/16/2024 3:30 PM EDT Nutrition Internal Medicine - [address] [phone] Carla Cheema, RD [address] [place] [phone] 12/02/2024 3:00 PM EDT Office Visit Adult Medicine [address] [phone] Rosalind Sorensen MD [address] [place] [address] documented as of this encounter Visit Diagnoses Diagnosis Neck pain- Primary Cervicalgia Poor posture Abnormal posture documented in this encounter Care Teams Lacquerer Relationship Specialty Start Date End Date Rosalind Sorensen MD [address] [place] [phone] PCP - General Internal Medicine 10/11/21 documented as of this encounter
--- OUTSIDE RECORDS SUMMARY | 2024-04-30 14:48 | XMS_ITS | Encounter Summary ---
Author Organization [employer] Address [address] [place] [address] Care Team Providers Care Evp Operations Name Role Phone Rosalind Sorensen MD Primary Care Prov ider Reason for Visit * Consultation (Routine) - Authorized Specialty Diagnoses / Procedures Referred By Suhail garcía Referred To Contact Physical Therapy Diagnoses Neck pain Poor posture Delia Bowden PA [address] [place] [address] Phone: tel: fax: Referral ID Status Reason Start Date Expiration Date Visits Requested Visits Authorized [id number] Authorized Specialty Services Required 02/19/2024 02/18/2025 25 25 Encounter Details Date Type Department Care Team (Latest Contact Info) Description 04/05/2024 2:45 PM EST Evaluation [address] [phone] Vivi Peralta, PT Neck pain (Primary Dx); [...] Progress Notes * Vivi Peralta PT - 04/05/2024 2:45 PM EST [facility] - Outpatient PHYSICAL THERAPY EVALUATION Date: 04/05/2024 Visit Number: 1 Patient Name: Rosalind Cummins : 1970 Age: 53 y.o. Gender: female Diagnosis: ICD-10-CM ICD-9-CM 1. Neck pain M54.2 723.1 2. Poor posture R29.3 781.92 Date of Onset/Surgery: 01/04/2024 Referring Provider: Delia Bowden PA Insurance: Payor: [employer] / Plan: [facility] FUNDED HMO / Product Type: *No Product type* / Patient identified by: Vivi Peralta PT Language: Speaks and understands Angolan as preferred language with no stack matcher required Chart Reviewed: Yes Medications: Current Outpatient Medications on File Prior [...] facility-administered medications on file prior to visit. Discussed current medications that may impact therapy. Medication list obtained and reviewed. Referto document in medical record. Advised Patient to contact MD with any questions regarding medications and importance of managing medication information. has a past medical history of Allergic rhinitis (03/09/2010), History of non-ST elevation myocardial infarction (NSTEMI), History of pulmonary embolism (12/31/2018), and Iron deficiency anemia due tochronic blood loss (11/20/2018). has a past surgical history that includes Section; Eye surgery (Bilateral); and Other surgical history. has No Known Allergies. Precautions: none Past Medical History to be aware of: Hx of low back pain Concurrent Services: No Concurrent Services SUBJECTIVE HISTORY: Patient presents to clinic with bilateral neck soreness/pain that began 2-3 months ago. COURSE OF CURRENT CONDITION: same PREVIOUS EPISODES: none PREVIOUS MEDICAL CARE/THERAPY: stretches- ineffective DIAGNOSTIC TESTS: 07/17 thoracic x-ray: No evidence of fractures or dislocations. Minimal scoliosis. Degenerative changes. 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 LEISURE/ACTIVITY LEVEL: back exercises given by PT, going to the gym treadmill and doing some weights lat pulls down and leg machines GOALS: not to feel pain, to get to 0/10 Prior Level of Function: no pain Current Functional Limitations: Reported by Patient limitations in look down and turning head Pain: Current level of pain 2/10; Pain at worst over the past week 3/10 and at best is a 0/10 Pain/symptoms described as: soreness Pain is located: bilateral neck pain Aggravating factors include: looking down, looking over shoulder Easing factors include: heat short term Is the patient at Risk for Falls: No OBJECTIVE Vitals: There were no vitals filed for this visit.; Posture/Observation: rounded shoulders forward head Palpation: tenderness suboccipitals, cervical paraspinals, UT, LS Cervical ROM Active Passive Cervical flexion (0-50) 54 P Cervical extension (0-60) 60 Cervical side bending R (0-45) 35 40 Cervical side bending L (0-45) 35 40 Cervical rotation R (0-80) 70 P 75 Cervical rotation L (0-80) 65 P 70 Shoulder Strength RIGHT LEFT Flexion 4+/5 4/5 Extension 4/5 4-/5 Abduction 4+/5 4/5 Internal Rotation 4+/5 4+/5 External Rotation 4/5 4-/5 Middle trap R 4-/5, L 3+/5 Lower trap R 3+/5, L 3/5 Serratus anterior R 4+/5, L 4/5 Special Tests: Deep neck flexor endurance test: 14 sec then fatigue, slight pain Cervical flexion rotation test negative Cervical distraction gave her some relief TREATMENT INTERVENTION Procedures: Seated levator scap stretch x 15 sec each Supine chin tucks x 10, 5 sec hold Pec stretch in door 2 x 15-20 sec Home exercise program: Access Code: [email or web address] - Supine Chin Tuck - 1-2 x daily - 7 x [...] 3 reps - 15-20s hold ASSESSMENT/Response to Treatment: Rosalind Cummins is a 53 y.o. female presenting for outpatient physical therapy evaluation with complaints of subacute bilateral neck pain. Signs and symptoms consistent with neck pain with mobility deficits. Significant clinical findings include: decreased neck ROM, decreased shoulder/scapular strength, and postural impairments. Skilled Physical therapy is medically necessary to address these limitations. Rehabilitation Potential: Rehab Potential: Condition Has Potential to Improve Motivation for Rehab: Good Support Structure: Good Learning Needs: Were Patient Learning needs assessed: Yes Learning Preferences: Demonstration Barriers to Learning: No Barriers to Learning Patient Education: [x] Discussed, with patient and/or caregiver, the recommended plan of care/goals, the importance oftherapy and appointment compliance in order to achieve goals in a timely manner. Education provided: home exercise program and plan of care Education Provided To: Patient utilizing Demonstration and Printed Material as mode(s) of education. Response to Education: Verbal Understanding and Demonstrated Skills GOALS Short Term Goals (will be achieved in 4 weeks) 1. Initiate home exercise program. 2. Pain will be improved by 2-3 points on VAS. 3. Patient will improve shoulder/scapular strength by 1/3 grade on manual muscle testing. 4. Patient will improve neck ROM by one grade. 5. Improve deep neck flexor endurance by 10 sec or more. Tavern Keeper Goals (will be achieved in 8-12 weeks) 1. Patient will be independent with home exercise program to maintain therapeutic gains. 2. Patient will be able to look down without pain or limitation 3. Patient will be able to look over shoulder like when driving without pain or limitation PLAN POC Development/Review: Initial Evaluation; Participants: Patient Skilled Therapy Plan Required: YES- Reasons for Rehab and Medical Necessity -- Return to Premorbid Environment Frequency/Duration of Treatment: 1x a week for 6 sessions or until goals are met Plan for next session(s): UBE, scap strength, and cervical/thoracic mobs/manip Planned Therapy Interventions: Cold Pack, E-Stim -- Unattended, Hot Pack, Kinesiotaping, Manual Therapy, Mechanical Traction, Neuromuscular Re-education, Patient / Family Education, Soft Tissue Mobility, TENS, Therapeutic Activity, Therapeutic Exercise, and Ultrasound Recommended Consults: none Equipment Recommended: none; Equipment Provided: none BILLING TOTAL TREATMENT TIME: 40 Minutes Evaluation Medium Complexity Justification ::: A history of present problem with 1 - 2 personal factors and/or co-morbidities that impact the plan of care and An examination of body systems using standardized tests and measures in addressing a total of 3 or more elements from any of the following body structures and functions, activity limitations, and/or participation restrictions Documentation completed by Vivi Peralta PT [address] [address] Dept: [phone] Dept PATIENT NAME: Rosalind Cummins : 1970 Certification: This is to certify that the above named patient, who is under my care, requires skilled Therapy services as described in the above treatment plan. I further certify that the services outlined in this plan are skilled and medically necessary. I have reviewed this plan for rehabilitation services, and I recommend that these services continue to meet the above stated goals and plan. SIGNATURE: DATE Delia Bowden PA Referring provider documented in this encounter Plan of Treatment Upcoming Encounters Date Type Department Care Team (Late st Contact Info) Description 05/01/2024 2:00 PM EST Office Visit Obstetrics and Gynecology - [address] [phone] Virginia Vazquez CNM [address] [place] [address] 05/03/2024 2:30 PM EST Treatment [address] [phone] KathrynVivienne valenciaca, PT 05/17/2024 2:30 PM EST Treatment [facility] 175 [facility] [address] [place] [phone] Vivi Peralta, PT 05/24/2024 2:30 PM EDT Treatment [facility] [address] [phone] Mayela Peraltaecca, PT 08/16/2024 3:30 PM EDT Nutrition Internal Medicine - [place] [address] [facility] [address] [place] [phone] Carla Cheema, RD [address] [place] [phone] 12/02/2024 3:00 PM EDT Office Visit Adult Medicine [address] [phone] Rosalind Sorensen MD [address] [place] [phone] documented as of this encounter Visit Diagnoses Diagnosis Neck pain- Primary Cervicalgia Poor posture Abnormal posture documented in this encounter Care Teams Evp Operations Relationship Specialty Start Date End Date Rosalind Sorensen MD [address] [place] [phone] PCP - General Internal Medicine 10/11/21 documented as of this encounter
--- NOTE | ~2024-06-14 | FL_ITS ---
EXAMINATION: XR LUMBAR PUNCTURE CLINICAL INFORMATION: WHITE MATTER ABNORMALITY ON MRI OF BRAIN COMPARISON: None available. TECHNIQUE: Informed consent was obtained from the patient. Timeout was performed. Using fluoroscopic guidance, the right L2-3 interlaminar space was identified, marked, and the skin prepped and draped in sterile fashion. Skin and subcutaneous tissues were anesthetized with 1% lidocaine. Subsequently, a 20-gauge Quincke spinal needle was advanced into the thecal sac, and clear CSF was noted at the needle hub. Opening pressure was measured at 8 cm H2O. Approximately 9.5 mL of clear CSF was obtained passively, and sent for laboratory analysis. The patient tolerated the procedure well. There were no immediate complications. 1 fluoroscopic spot image obtained. FLUOROSCOPY TIME: 0.1 seconds DOSE AREA PRODUCT: 119.2 uGy-m2 (microgray-meter squared) FL/FL guided lumbar puncture LP IMPRESSION: 1. Successful L2-3 fluoroscopic lumbar puncture. Opening pressure measured at 8 cm H2O. Electronically signed by: Parth Perez MD 06/14/2024 12:15 PM EDT
[2024-06-14 09:35] VITALS: BMI 29.8
[2024-06-14 09:47] LABS: MANUAL DIFF FLAG NO
[2024-06-14 09:48] LABS: Basophils Percent Auto 0.7 % (0-2); Eosinophils Absolute Auto 0.1 X10*3/uL (0.0-0.4); Eosinophils Percent Auto 2.1 % (0-4); Hematocrit 39.7 % (37.0-47.0); Hemoglobin 13.3 g/dl (12.0-16.0); Imm Gran Abs Auto 0.01 X10*3/uL (0.00-0.03); Imm Gran Pct Auto 0.2 % (0.0-0.4); Lymphocytes Absolute Auto 1.5 X10*3/uL (1.2-4.9); Lymphocytes Percent Auto 34.3 % (20-40); Mean Corpuscular HGB Conc 33.5 g/dl (31.0-35.0); Mean Corpuscular Hemoglobin 30.9 pg (27.0-33.0); Mean Corpuscular Volume 92.1 fL (80.0-98.0); Mean Platelet Volume 10.5 fL (9.4-12.3); Monocytes Absolute Auto 0.3 X10*3/uL (0.1-1.2); Monocytes Percent Auto 6.1 % (2-11); Neutrophils Absolute Auto 2.4 x10*3/uL (2.0-8.3); Neutrophils Percent Auto 56.6 % (45-73); Platelet Count 167 X10*3/uL (160-400); Red Blood Count 4.31 X10*6/uL (4.20-5.50); Red Cell Distribution Width 12.8 % (11.0-16.0); White Blood Count 4.3 X10*3/uL (4.8-10.8)
[2024-06-14 09:53] VITALS: BP 144/105; PULSE 73; RESP 16; TEMP 36.7; O2SAT 99
[2024-06-14 09:54] LABS: Prothrombin Time 11.4 SEC (10.9-12.4)
[2024-06-14 10:04] LABS: Anion Gap 9 (12-20); Blood Urea Nitrogen 18 mg/dL (9-16); Calcium 9.1 mg/dL (8.4-10.2); Carbon Dioxide 25 mmol/L (22-29); Chloride 113 mmol/L (96-108); Creatinine Clr Calc Pharmacy 78.6; Estimated Glomerular Filt Rate > 60; Glucose Random 91 mg/dL (60-115); Potassium 4.4 mmol/L (3.3-5.1); Sodium 143 mmol/L (135-145)
[2024-06-14 12:00] VITALS: BP 122/73; PULSE 73; RESP 16; TEMP 36.6; O2SAT 96
[2024-06-14 12:28] VITALS: BP 118/68; PULSE 74; RESP 16; O2SAT 96
[2024-06-14 12:58] VITALS: BP 135/74; PULSE 71; RESP 16; O2SAT 97
[2024-06-14 13:25] LABS: Glucose CSF 53 mg/dL; Total Protein CSF 37.4 mg/dL (15-45)
[2024-06-14 13:30] VITALS: BP 121/67; PULSE 78; RESP 16; O2SAT 96
[2024-06-14 13:49] LABS: CSF Appearance Clear, Colorless; CSF Tube # 1
[2024-06-14 13:57] VITALS: BP 120/69; PULSE 76; RESP 16; TEMP 36.8; O2SAT 97
[2024-06-14 14:02] LABS: Appearance CSF CLEAR; CSF Tube # 2; Color CSF COLORLESS; Lymphocytes CSF 100 %
[2024-06-14 14:03] LABS: Red Blood Cell CSF 1 MM*3; White Blood Cell CSF 2 MM*3
[2024-06-17 13:55] LABS: Oligoclonal Serum Yes
[2024-06-19 22:03] LABS: Albumin 3.6 g/dL (3.6-5.1); Albumin, CSF 26.3 mg/dL (8.0-42.0); IgG 751 mg/dL (600-1640); IgG, CSF 2.4 mg/dL (0.8-7.7)
[2024-06-20 19:23] LABS: Oligoclonal Banding Absent (Absent)
== END 2024-06-14 14:01 | disposition home or self-care (01) ==
PROVIDERS: Physician Assistant Surgical; Radiology Diagnostic Radiology; PCP Internal Medicine; Visit Provider Psychiatry & Neurology Neurology
PROC: 009U3ZZ Drainage of Spinal Canal, Percutaneous Approach (ICD-10-PCS; CPT 62270; principal; 2024-06-14 11:00)
DX: R93.0 Abnormal findings on diagnostic imaging of skull and head, not elsewhere classified (principal); R51.9 Headache, unspecified; R27.0 Ataxia, unspecified; H16.009 Unspecified corneal ulcer, unspecified eye; D64.9 Anemia, unspecified; Z86.711 Personal history of pulmonary embolism; Z79.899 Other long term (current) drug therapy
CPT/HCPCS: 36415; 62328; 80048; 82042; 82945; 83916; 84157; 85025; 85610; 87015; 87070; 87205; 89051; J2003

== ENCOUNTER → 2024-06-14 11:00 | Outpatient (BNV) | payer OTHER, SELFPAY | PROVIDERS: PCP Internal Medicine; Visit Provider Radiology Diagnostic Radiology | DX: R90.82 White matter disease, unspecified (principal) | CPT/HCPCS: 62328 ==

== ENCOUNTER 2024-11-01 17:50 | Emergency (ER) | payer OTHER, SELFPAY ==
--- NOTE | ~2024-11-01 | XR_ITS ---
CLINICAL HISTORY: weakness 2 view chest x-ray Comparison: None provided Findings: No consolidation or effusion. Heart size is normal. No acute fracture. IMPRESSION: 1. No acute findings. This document has been electronically signed by: Andrew Orosco MD on 11/01/2024 18:55:09
[2024-11-01 18:00] VITALS: BP 145/68; PULSE 90; RESP 16; TEMP 36.8; O2SAT 95; BMI 28.3
--- NOTE | 2024-11-01 18:01 | ECG_ITS ---
Test Reason : DIZZNESS Blood Pressure : */* mmHG Vent. Rate : 87 BPM Atrial Rate : 87 BPM P-R Int : 142 ms QRS Dur : 88 ms QT Int : 370 ms P-R-T Axes : 44 13 34 degrees QTcB Int : 445 ms Normal sinus rhythm Normal ECG When compared with ECG of 29-Dec-2018 08:28, Nonspecific T wave abnormality has replaced inverted T waves in Inferior leads Referred By: Dimitri Mcnair Electronically Signed By: BRIAN ESTEVEZ MD
--- NOTE | 2024-11-01 18:01 | ED.GENADULT ---
HPI - General Adult General Chief complaint: Dizziness Stated complaint: fatigue, dizziness (sent by Dr. prior breen. emb Time Seen by Provider: 11/01/24 19:54 Source: patient Mode of arrival: ambulatory Limitations: no limitations History of Present Illness ED Provider: HPI narrative: This is a 54-year-old woman with history of provoked PE from prior uterine surgery, this is in 2019 off blood thinners at this point, has felt some fatigue and nonspecific dizziness did not feel vertigo, has had no chest pain or shortness of breath, she called her PCP and because she has a history of PE she was told to come to the ER. No ear pain, no drainage not on any new medications. Related Data Allergies Allergy/AdvReac Type Severity Reaction Status Date / Time bee pollen (bee stings) AdvReac Swelling Verified 11/01/24 18:02 Review of Systems Constitutional: Constitutional: Reports as per HPI [facility] Past Medical History Medical History (Updated 11/01/24 @ 20:30 by Manish Locke DO) Pulmonary embolism Eye problem Anemia Surgical History (Updated 06/14/24 @ 09:34 by Berenice Garcia RN) H/O colonoscopy History of surgery Social History Social History Patient Tobacco Use Status: Never used Tobacco Physical Exam ED Vital Signs: Vital Signs - 24 hr 11/01/24 18:00 11/01/24 19:30 Temperature 98.2 F 98.4 F Pulse Rate 90 84 Respiratory Rate 16 16 Blood Pressure 145/68 H 141/57 H Pulse Oximetry 95 99 Oxygen Delivery Method Room Air BMI result Body Mass Index 28.3 Const Other: Gen: ?Overall well-appearing patient HEENT: PERRLA, EOMI, MMM, Neck: Supple, no LAD CV: RRR, no obvious murmurs appreciated Resp: ?No wheezing rales rhonchi no stridor moving air well Abd: ?Bowel sounds are present, no tenderness no rebound no rigidity MSK: FROM, strength 5/5 all extremities Skin: Warm, dry, intact, no lower extremity edema noted Neuro: ?Alert and oriented x3, moving upper and lower extremities symmetrically, no obvious facial asymmetry noted, no upper or lower extremity dysmetria, no nystagmus horizontal or vertical Course Course Course Narrative: RME, this is a rapid medical exam performed by Renzo O'Torey please refer to primary provider for complete H&P- 54-year-old female with a history of PE not currently anticoagulated presents for evaluation of weakness. Denies any pain, fevers, chills. Plan for basic labs, EKG, chest x-ray, viral swabs Medical Decision Making Medical Decision Making MDM Narrative: Please see my extensive discharge instructions, some on my considerations for workup as below, there was a shared decision-making with the patient regarding PE workup, she states she did not come into the ER with the understanding that she needs PE workup as she did not have any symptoms and she had a prior provoked PE, she did not have any hypoxia tachycardia. There was also no evidence for cerebellar stroke or BPPV, she had slightly irritated left ear canal from Q-tips, no impaction no infection, I did review her prior MRI of the brain with Dr. Carrion it sounds like she has had similar symptoms in the beginning of the year and she has has some patches in the white matter on MRI and in April she had an LP done to evaluate for MS, and she states that she has follow up for that as well. Overall her workup has been reassuring, and upon further discussion I am discharging the patient without either D-dimer or CTA. Differential Diagnosis Differential Diagnoses: The differential diagnosis associated with the presentation includes (BPPV, cerebellar stroke, multiple sclerosis, ACS, dysrhythmia, PE, dehydration, anemia) Admission/Observation Consideration of admission/observation: Escalation of care including admission/observation considered 2022 Emergency Medicine Coding Guide from [email or web address] on 11/01/2024 All calculations should be rechecked by clinician prior to use RESULT SUMMARY: 5 Estimated Level of Service Problems: High (5) Risk: High (5) Data: Extensive (5) NARRATIVE MDM: This patient's problem complexity is High as patient: may have an acute or chronic illness/injury posing a threat to life or body function. This patient's risk is High due to: overall presentation requiring evaluation for a potentially High-risk process. This patient's data complexity is Extensive due to: -multiple tests ordered/reviewed -external notes reviewed -independent interpretation of imaging or EKG INPUTS: Number and Complexity ?> 2 = 5: illness/injury w/life or body threat (b) Risk level ?> 4 = High Tests ordered ?> 3 = =3 Tests results reviewed (excluding labs) ?> 2 = 2 Prior external notes reviewed ?> 1 = 1 Assessment requiring and independent historian ?> 0 = No Independent interpretation of tests ?> 1 = Yes Discussed management/test interpretation w/external professional ?> 0 = No Lab Data MDM Lab Attestation statement: I reviewed the patient's lab results. 11/01/24 18:19 11/01/24 18:19 Labs: Lab Results 11/01/24 11/01/24 Range/Units 18:19 18:21 WBC 6.2 (4.8-10.8) X10*3/uL RBC 4.33 (4.20-5.50) X10*6/uL Hgb 13.2 (12.0-16.0) g/dl Hct 39.7 (37.0-47.0) % MCV 91.7 (80.0-98.0) fL MCH 30.5 (27.0-33.0) pg MCHC 33.2 (31.0-35.0) g/dl RDW 12.8 (11.0-16.0) % Plt Count 171 (160-400) X10*3/uL MPV 11.0 (9.4-12.3) fL Immature Gran % (Auto) 0.2 (0.0-0.4) % Neut % (Auto) 57.2 (45-73) % Lymph % (Auto) 33.9 (20-40) % [place] % (Auto) 5.3 (2-11) % Eos % (Auto) 2.9 (0-4) % Baso % (Auto) 0.5 (0-2) % Lymph # (Auto) 2.1 (1.2-4.9) X10*3/uL [place] # (Auto) 0.3 (0.1-1.2) X10*3/uL Eos # (Auto) 0.2 (0.0-0.4) X10*3/uL Baso # (Auto) 0.0 (0.0-0.2) X10*3/uL Abs Immat Gran (auto) 0.01 (0.00-0.03) X10*3/uL Absolute Neuts (auto) 3.5 (2.0-8.3) x10*3/uL Absolute Nucleated RBC 0.000 (0.0-0.012) X10*3/uL Nucleated RBC % (auto) 0.0 (0.0-0.2) /100WBC Hold Purple Top SEE NOTE Sodium 141 (135-145) mmol/L Potassium 3.5 D (3.3-5.1) mmol/L Chloride 108 (96-108) mmol/L Carbon Dioxide 25 (22-29) mmol/L Anion Gap 12 (12-20) BUN 16 (9-16) mg/dL Creatinine 0.76 (0.5-1.4) mg/dL Estim Creat Clear Calc 83.8 Estimated GFR > 60 Random Glucose 143 H (60-115) mg/dL Calcium 8.9 (8.4-10.2) mg/dL Total Bilirubin 0.4 (0.0-1.0) mg/dL AST 18 (5-31) U/L ALT 15 (0-31) U/L Alkaline Phosphatase 96 (39-117) U/L B-Natriuretic Peptide 17 (<100) pg/mL Total Protein 6.7 (6.5-8.0) g/dL Albumin 4.3 (3.5-5.0) g/dL Lipase 19 (8-78) U/L COVID-19 (ALISHA) Negative (Negative) COVID-19 Clin Com See Note Influenza Type A (RENATA) Negative (Negative) Influenza Type B (RENATA) Negative (Negative) Influenza A & B Note See Note Independent Interpretation I performed an independent interpretation of an: EKG (87 BPM otherwise normal ECG without dysrhythmia, AV geraldo blocks or ST-T changes to suspect underlying ACS, my independent interpretation) Tests considered The following testing was considered but not selected: CT angio Discharge Plan Discharge Clinical Impression: Dizziness Patient Disposition: Home, Self-Care Instructions: Dizziness (ED) Additional Instructions: Evaluated with dizziness and fatigue sent in by your provider with reports of prior provoked blood clot in the lungs, as discussed I am reassured by a physical examination today including vital signs, your blood pressure was slightly elevated, your physical examination without any evidence for vertigo or stroke in the back of the brain some of the things that can cause dizziness, your blood work did not reveal anemia that can cause these symptoms as well, your EKG has been reassuring, we have discussed whether there was any need for additional testing to evaluate for blood clots but because of prior history of provoked clot you have not had any risk factors, your heart rate was unremarkable, oxygen unremarkable, and he did not have any chest pain or shortness of breath we both did not feel that we should pursue that matter. I have also reviewed your prior workup regarding the brain matter changes that you have had and you have had adequate workup and you have follow up for that as well. At this point I would not do much different to what you are doing right now staying well hydrated, keeping an eye on your other symptoms that may develop, if you have chest pain, shortness of breath, fevers, headaches, vision changes, painful urination come back to the ER otherwise follow up with the PCP. Referrals: Rosalind Cifuentes MD [Primary Care Provider, Internal Medicine] - 10 days Clinical Impression: Dizziness Print Language: Wolof
[2024-11-01 18:29] LABS: MANUAL DIFF FLAG NO
[2024-11-01 18:30] LABS: Hematocrit 39.7 % (37.0-47.0); Hemoglobin 13.2 g/dl (12.0-16.0); Imm Gran Abs Auto 0.01 X10*3/uL (0.00-0.03); Imm Gran Pct Auto 0.2 % (0.0-0.4); Lymphocytes Absolute Auto 2.1 X10*3/uL (1.2-4.9); Mean Corpuscular HGB Conc 33.2 g/dl (31.0-35.0); Mean Corpuscular Hemoglobin 30.5 pg (27.0-33.0); Mean Corpuscular Volume 91.7 fL (80.0-98.0); NRBC Abs Auto 0.000 X10*3/uL (0.0-0.012); NRBC Pct Auto 0.0 /100WBC (0.0-0.2); Platelet Count 171 X10*3/uL (160-400); Red Blood Count 4.33 X10*6/uL (4.20-5.50); White Blood Count 6.2 X10*3/uL (4.8-10.8)
[2024-11-01 18:48] LABS: Alanine Aminotransferase 15 U/L (0-31); Albumin Level 4.3 g/dL (3.5-5.0); Alkaline Phosphatase 96 U/L (39-117); Anion Gap 12 (12-20); Aspartate Amino Transferase 18 U/L (5-31); Blood Urea Nitrogen 16 mg/dL (9-16); Calcium 8.9 mg/dL (8.4-10.2); Carbon Dioxide 25 mmol/L (22-29); Chloride 108 mmol/L (96-108); Creatinine Clr Calc Pharmacy 83.8; Estimated Glomerular Filt Rate > 60; Lipase 19 U/L (8-78); Potassium 3.5 mmol/L (3.3-5.1); Sodium 141 mmol/L (135-145); Total Protein 6.7 g/dL (6.5-8.0)
[2024-11-01 18:54] LABS: IDNOW Serial# 55D5AD1C
[2024-11-01 18:54] LABS: B Type Natriuretic Peptide 17 pg/mL (<100)
[2024-11-01 18:55] LABS: COVID-19 Test Negative (Negative); IDNOW Serial# 58CA691E; Influenza B2 Negative (Negative)
[2024-11-01 19:30] VITALS: BP 141/57; PULSE 84; RESP 16; TEMP 36.9; O2SAT 99
--- NOTE | 2024-11-01 19:38 | PC.NURSE ---
pt complains of dizziness intermittently for 2 weeks Denies pain, has a room spinning feeling. denies nausea or vomiting. v/s WNL. respirations even and unlabored.
--- NOTE | 2024-11-01 19:50 | PC.NURSE ---
lab called down for recollect, this RN reached out to lab for clarification they advised a SST was needed to complete Lyme panel, asked that we send blood down with pt label.
[2024-11-01 20:44] VITALS: BP 106/63; PULSE 79; RESP 16; TEMP 36.9; O2SAT 99
[2024-11-01 20:45] VITALS: BP 106/63; PULSE 79; RESP 16; TEMP 36.9; O2SAT 99
[2024-11-02 19:04] LABS: Lyme Disease DNA PCR NOT DETECTED (NOT DETECTED)
[2024-11-04 19:43] LABS: Lyme Abs Screen <0.90 index
== END 2024-11-01 20:46 | disposition home or self-care (01) ==
PROVIDERS: Physician Assistant; Emergency Provider Emergency Medicine; PCP Internal Medicine
DX: R53.1 Weakness (principal); R42 Dizziness and giddiness; R53.83 Other fatigue; Z86.711 Personal history of pulmonary embolism; Z79.899 Other long term (current) drug therapy
CPT/HCPCS: 71046; 80053; 83690; 83880; 85025; 86617; 86618; 87502; 87635; 93005; 99283; 99284

== ENCOUNTER → 2024-11-01 18:01 | Outpatient (BNV) | payer OTHER, SELFPAY | PROVIDERS: Emergency Provider Emergency Medicine; PCP Internal Medicine; Visit Provider Internal Medicine Cardiovascular Disease | DX: R42 Dizziness and giddiness (principal) | CPT/HCPCS: 93010 ==

== ENCOUNTER → 2024-11-01 18:01 | Outpatient (BNV) | payer OTHER, SELFPAY | PROVIDERS: PCP Internal Medicine; Visit Provider Radiology Diagnostic Radiology | DX: R53.1 Weakness (principal) | CPT/HCPCS: 71046 ==

== ENCOUNTER 2024-12-26 08:32 | Outpatient (AMB) | payer OTHER, SELFPAY ==
--- NOTE | 2024-12-26 08:49 | A.OFFVIS_ITS ---
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 She has h/o uterine fibroid leading to iron def anemia not resolved with surgery and treatment of anemia, headaches, h/o pulmonary embolism, and numerous non specific but significant white matter lesions of brain. CSF analysis was negative. Anticardiolipin IgM titre was minimally elevated in indetminate range, and IgG titre was normal. She is presenting with Sacroiliac Joint Dysfunction and Anemia. She has previously been seen for hip pain, attributed to SI joint dysfunction, with her overall condition being managed on a daily basis without new reported exacerbations. The SI joint issues have been documented as stable, though precise treatment strategies from earlier assessments are not provided. Additionally, the patient suffers from anemia, for which iron supplementation is ongoing. This visit did not expand on the anemia onset or the past clinical pathway beyond current management. There is a history of antiphospholipid syndrome, identified through elevated antibody levels affecting microvasculature, which is managed with daily baby aspirin to prevent possible complications such as strokes. The conversation highlighted the enigmatic nature of this syndrome. She reported experiencing severe tiredness following an allergic reaction to a topical cream initially used for dermatologic concerns. Management of this incident involved discontinuation of the cream. [facility] Medical History (Updated 12/26/24 @ 08:56 by Jason Carrion MD) Pulmonary embolism Eye problem Anemia Surgical History (Updated 06/14/24 @ 09:34 by Berenice Garcia RN) H/O colonoscopy History of surgery Social History Patient Tobacco Use Status: Never used Tobacco Review of Systems Const Details: - Musculoskeletal: Reports neck arthritis, hip pain related to sacroiliac joint dysfunction. - Genitourinary: Reports occasional bladder incontinence. - Sleep: Reports disrupted sleep, attributed to neck arthritis discomfort. - General: Reports tiredness, attributed to an allergic reaction to a topical cream. - Cardiovascular: Denies taking baby aspirin currently. - Mood: Denies mood disturbances. Physical Exam Neuro Other: Mental Status: Alert and oriented to person, place, and time. Normal attention. Normal spontaneous speech, fluency, and comprehension. No obvious issues with mood and memory. Affect is appropriate. Cranial Nerves: CN II: Visual kerr full to confrontation, visual acuity intact. CN III, IV, : Pupils equal, round, reactive to light and accommodation. Extraocular movements are normal. CN V: Facial sensation is normal. CN VII: Facial movements symmetrical. CN VIII: Hearing intact to bedside conversation is normal. CN IX, X: Palate elevates symmetrically. CN XI: Shoulder shrug and head turn symmetrical. CN XII: Tongue midline without atrophy or fasciculations. Extrapyramidal: Full facial expressions and blinking. No rigidity. Movements are appropriate with no tremor or abnormality. Speech: Normal; no dysarthria or tremor. Assessment & Plan Assessment & Plan (1) Cerebral microvascular disease: Comment: LP at [facility] in Jun 2024: OP 8cm, WBCs 2, RBCs 1, Glu 53, Pro 37.4, OCBs absent Labs at [facility] in 2024: Cardiolipin IgG normal, IgM mildly elevated in indeterminate range MRI brain WWO at [facility] in Apr 2024: Numerous b/l WM post predominant FLAIR signal abnormalities w/o enhancement, not close to ventricles, not typical of MS or MVD NCV/EMG LE (in office) 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 04/18/24. CTA brain at [facility] [place] in 2019: No vascular stenosis CT brain WO at [facility] in Nov 2018: Right parietal WM hypodensity, ?cause MRI brain WWO at [facility] in Nov 2018: numerous b/l WM lesions, somewhat post predominant, not close to ventricles, not flame shaped, more at junction of cortex and WM. Code(s): I67.89 - Other cerebrovascular disease Category: Medical (2) Anti-cardiolipin antibody syndrome: Code(s): D68.61 - Antiphospholipid syndrome Category: Medical Plan During the visit, I explained to the patient the importance of ongoing management for her antiphospholipid syndrome, emphasizing the preventive role of baby aspirin in reducing stroke risk due to blood vessel stickiness attributable to the condition. The rationale behind using aspirin was communicated effective ly, ensuring understanding of its benefits to her vascular health. I discussed the necessity of iron supplementation in managing her anemia and the importance of monitoring her blood parameters regularly. Addressing her sacroiliac joint dysfunction, I reassured her regarding the stability of her condition and emphasized the customary management approach. I explored the tiredness episode related to the allergic reaction indicating the commonality of such responses to topical agents and advised on the prudent avoidance of the causative cream. Additionally, I detailed the lack of a need for further action in managing her neck arthritis given its stable presentation. Orders: Orders VIDAL Reflex Titer and Pattern Today D68.61 - Antiphospholipid syndrome, I67.89 - Other cerebrovascular disease Anti DNA DS Antibody Today D68.61 - Antiphospholipid syndrome, I67.89 - Other cerebrovascular disease Cardiolipin Antibodies Today D68.61 - Antiphospholipid syndrome, I67.89 - Other cerebrovascular disease Coding Level of Care Code Est Pt Level 4 (57826) Diagnoses Cerebral microvascular disease I67.89 Anti-cardiolipin antibody syndrome D68.61
--- OUTSIDE RECORDS SUMMARY | 2024-12-26 08:59 | XMS_ITS | Clinical Summary ---
Author Organization [address] [facility] Address [address] [place] [address] Phone Care Team Providers Care Structural Iron Erector Name Role Phone Ema Sorensen MD Primary Care Prov ider Allergies Active Allergy Reactions Criticality Noted Date Comments Trolamine Salicylate Rash High 12/02/2024 Medications ferrous sulfate 325 mg (65 mg elemental iron) tablet Take 1 tablet (325 mg total) by mouth 1 (one) time each day. Active levonorgestreL (MIRENA) 21 mcg/24hr (up to 8 yrs) 52 mg IUD 1 Device (1 each total) by intrauterine route 1 (one) time. Active mometasone (NASONEX) 50 mcg/actuation nasal spray SPRAY 2 SPRAYS INTO EACH NOSTRIL EVERY DAY 10 mL 5 Active aspirin (ASPIR-81 ORAL) Take 1 tablet by mouth 1 (one) time each day. Active triamcinolone (KENALOG) 0.1 % cream Apply to affected area 1-2 times daily as needed for 1 week 15 g 5 12/30/19 25 Active Additional Information Patient not taking.Reported on 12/19/2024 cyclobenzaprine (FLEXERIL) 10 mg tablet Take 1 tablet (10 mg total) by mouth at bedtime as needed for muscle spasms. 30 tablet 5 01/29/20 25 Active diclofenac (Cataflam) 50 mg tablet Take 1 tablet (50 mg total) by mouth 2 (two) times a day for 10 days. 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 Mild neuroforaminal narrowing Low vitamin D level 05/02/2024 Assessment & Plan (12/06/2024 10:09 AM EDT): History of vitamin D deficiency. Not on supplements. Will recheck levels. Orders: Vitamin D 25 hydroxy; Future Vitamin B12; Future Chronic midline thoracic back pain 12/04/2023 History of non-ST elevation myocardial infarctio n (NSTEMI) 11/22/2022 Corneal erosion 11/20/2020 Overview (02/01/2024): [facility] eye and [facility] Mass of uterine cervix 12/06/2018 Overview (02/01/2024): Last Assessment & Plan: I discussed with Ema that the purpose of this procedure is [...] matter abnormality on MRI of brain 019 Overview (10/04/2024): Following with neurology for cerebral microvascular disease. Started on aspirin. Iron deficiency anemia due to chronic blood [...] plan with Dr. Aguilar in Oncology at [place] and he agrees. He will see her in the office within the next two days. Pt informed to call and arrange this and agrees. She will start Provera today and continue until we are able to place her Mirena IUD in the near future. IUD (intrauterine device) in place 06/17/2015 Overview (02/01/2024): Mirena 01/2019 Vitamin D deficiency 06/24/2011 Allergic rhinitis 03/09/2010 History of pulmonary embolism Overview (05/01/2024): DX:History of pulmonary embolism; COMMENT: Following hysteroscopic myomectomy 12/28/18, on OCP at the time. Per heme, anticoag x 6 mos then discontinue, finished treatment in 2020 due to not being able to see someone during COVID Encounters Date Type Department Care Team Description 12/19/2024 3:45 PM EDT Consult Orthopedic Surgery - [address] [place] [address] Miguelina Burleson PA Hand pain (Primary Dx) 12/13/2024 Results Follow-Up Adult [address] [phone] Ema Abbasi MD 12/05/2024 Telephone Adult [address] [phone] Ema Abbasi MD 12/02/2024 3:00 PM EDT Office Visit [address] [phone] Ema Abbasi MD Adult general medical examination (Primary Dx); Encounter for lipid screening for cardiovascular disease; Low vitamin D level; Need for vaccination against Streptococcus pneumoniae 11/29/2024 3:15 PM EDT Office Visit Walk-In Clinic - [address] [phone] Leida Ramirez NP SI (sacroiliac) joint dysfunction (Primary Dx); Dysuria 11/29/2024 Telephone Adult Medicine [address] [phone] Ema Abbasi MD 10/31/2024 Telephone Adult Medicine [address] [phone] Ema Abbasi MD 10/30/2024 1:30 PM EDT Office Visit [address] [phone] Yobany Vuong PA Allergic dermatitis (Primary Dx) 10/29/2024 Telephone Adult [address] [phone] Ema Abbasi MD 10/04/2024 11:15 AM EDT - 10/04/2024 11:59 PM EDT Hospital Encounter [address] [phone] Neck pain Discharge Disposition: Home or Self Care 10/04/2024 10:30 AM EDT Office Visit [address] [phone] Delia Bowden PA Chronic midline thoracic back pain (Primary Dx); Neck pain; Spondylosis of thoracic region without myelopathy or radiculopathy; White matter abnormality on MRI of brain; Cerebral microvascular disease; Spondylosis of cervical region without myelopathy or radiculopathy 10/03/[address] [phone] Ema Abbasi MD from Last 3 Months Immunizations Immunization Administration Dates Next Due Influenza Quadravalent, MDCK , 0.5ml, preservative free (Flucelvax) 6mo and older 11/22/2022,12/14/2021,12/28/2020,2018 Influenza Quadrivalent, 0.5m l, preservative free (Fluarix; FluLaval; Fluzone) ages 6mo and older (Afluria) 3yo and older 12/12/2019 Influenza trivalent, with preservative (Fluzone; Afluria) 6mo and older 11/27/2023,01/07/2016 Influenza, Unspecified 12/22/2018 Pneumococcal conjugate 20 va lent (Prevnar 20, PCV 20) 2mo and older 12/02/2024 Td Tetanus diptheria (Tdvax) 7yo and older 11/09/2005 Tdap Tetanus diptheria acell ular pertussis (Boostrix; Adacel) 7yo and older 11/22/2022,05/29/2012 Zoster recombinant (Shingrix ) 19yo and older 12/02/2022 Surgical History Surgery Date Site/Laterality Comments SECTION PROCEDURE: HISTORICAL DELIVERY; COMMENT: x1 EYE SURGERY Bilateral PROCEDURE: HISTORICAL EYE SURGERY; COMMENT: Lasik OTHER SURGICAL HISTORY PROCEDURE: [place] UNLISTED LAPAROSCOPY PROCEDURE UTERUS; COMMENT: fibroid removal [...] care for your loved ones. For example, childbirth educator or elderly care for an older adult? [...] Sexual Orientation Not on file Obstetrics History * This document contains information received from the source organization and may not represent a complete record from that organization. Para Term AB IAB SAB Ectopic Multiple Livin g Live Births 3 2 2 Date Outcome GA Total Labor Labor/2nd/3rd Weight Sex Type Anes PTL Yoanna A1 A5 Name Clin Term Term Last Filed Vital Signs Vital Sign Reading Time Taken Comments Blood Pressure 116/83 12/02/2024 2:43 PM EDT Pulse 64 12/02/2024 2:43 PM EDT Temperature 36.4 C (97.5 F) 12/02/2024 2:43 PM EDT Respiratory Rate 16 12/02/2024 2:43 PM EDT Oxygen Saturation 97% 12/02/2024 2:43 PM EDT Inhaled Oxygen Concentration - - Weight 75.5 kg (166 lb 6.4 oz) 12/02/2024 2:43 P M EDT Height 160 cm (5' 3 ) 12/02/2024 2:43 PM EDT Body Mass Index 29.48 12/02/2024 2:43 PM EDT Plan of Treatment Upcoming Encounters Date Type Department Care Team (Late st Contact Info) Description 04/17/2025 5:30 PM EST Appointment Radiology Department - [address] [phone] 12/12/2025 3:00 PM EDT Office Visit Adult Medicine [address] [phone] Ema Sorensen MD [address] [place] [address] Health Maintenance Due Date Last Done Comments Social Influencers of Health Screening 10/04/2025 10/04/2024 Breast Cancer Screening 04/09/2026 04/09/19, 03/29/2023, 03/28/2022, Additional history exists Colorectal Cancer Screening: Colonoscopy 09/07/2026 09/07/2016 Cervical Cancer Screening: HPV 06/04/2027 06/03/2022 Cholesterol Screening (Lipid Panel) 12/03/2029 12/03/2024, 04/26/2024, 12/04/2023, Additional history exists DTaP,Tdap,and Td Vaccines (4 - Td or Tdap) 11/22/2032 11/22/2022, 05/29/2012, 11/09/2005 RSV Immunization Adult Patients (1 - 1-dose 75+ series) 2045 HIV Screening Completed 06/03/2022 Hepatitis C Screening Completed 11/22/2022 Depression Screening Completed 10/04/2024 Pneumococcal Vaccine: 50+ Years Completed 12/02/2024 COVID-19 Vaccine Completed 12/15/2024, , 03/29/2021, Additional history exists Influenza Vaccine Completed 12/15/2024, , 11/22/2022, Additional history exists Zoster Vaccines Completed 12/15/2024, 12/02/2022 HIB Vaccines Aged Out No longer eligi ble based on patient's age to complete this topic HPV Vaccines Aged Out No longer eligi ble based on patient's age to complete this topic Hepatitis A Vaccines Aged Out No long er eligible based on patient's age to complete this topic Hepatitis B Vaccines Discontinued IPV Vaccines Aged Out No longer eligi ble based on patient's age to complete this topic MMR Vaccines Aged Out No longer eligi ble based on patient's age to complete this topic Meningococcal ACWY Vaccine Aged Out N o longer eligible based on patient's age to complete this topic Meningococcal B Vaccine Aged Out No l onger eligible based on patient's age to complete this topic RSV Immunization Patients Under 20 months Aged Out No longer eligible based on patient's age to complete this topic Varicella Vaccines Aged Out No longer eligible based on patient's age to complete this topic Procedures Procedure Name Priority Date/Time Associated Diagnosis Comments XR HAND 3+ VIEWS BILAT Routine 12/19/2024 4:06 PM EDT Hand pain CBC WITH AUTO DIFFERENTIAL Routine 12/03/2024 8:03 AM EDT Adult general medical examination VITAMIN D 25 HYDROXY Routine 12/03/2024 8:03 AM EDT Low vitamin D level LIPID PANEL WITH REFLEX TO DIRECT LDL Routine 12/03/2024 8:03 AM EDT Encounter for lipid screening for cardiovascular disease COMPREHENSIVE METABOLIC PANEL Routine 12/03/2024 8:03 AM EDT Adult general medical examination CBC AND DIFFERENTIAL Routine 12/03/2024 8:03 AM EDT Adult general medical examination VITAMIN B12 Routine 12/03/2024 8:03 AM EDT Adult general medical examination Low vitamin D level Encounter for lipid screening for cardiovascular disease CULTURE URINE Routine 11/29/2024 5:27 PM EDT Dysuria EXTERNAL XRAY REPORT Routine 11/01/2024 10:45 AM EDT XR CERVICAL SPINE 4-5 VIEWS Routine 10/04/2024 11:25 AM EDT Neck pain MG MAMMO DIGITAL SCREENING W ASHOK BILAT Routine 04/09/2024 4:22 PM EST Encounter for screening mammogram for breast cancer HEPATITIS C SCREENING Routine 11/22/2022 HPV Routine 06/03/2022 HIV SCREENING Routine 06/03/2022 COLONOSCOPY Routine 09/07/2016 from Last 3 Months or Most Recently Relevant to Health Maintenance Results * XR Hand 3+ Views bilat (12/19/2024 4:06 PM EDT) Anatomical Region Laterality Modality Upper Extremities, Hand Bilateral Computed Radiography Narrative 12/19/2024 4:27 PM EDT Date of Visit: 12/19/2024 Reason for visit: Bilateral hand pain Views: AP, lateral, oblique bilateral hands Comparison: None Findings: No fracture, dislocation or lytic lesions. No widening of scapholunate interval or DRUJ bilaterally. Mild narrowing of ulnar carpal space left greater than right. Mild arthritic changes of bilateral CMC joints left greater than right. Joint space maintained at DIP and PIP joints. Impression: Minimal arthritic changes bilateral hands and no acute findings us Miguelina AVILES IMG XR PROCEDURES Final Resul t * (ABNORMAL) Lipid panel with reflex to direct LDL (12/03/2024 8:03 AM EDT) Cholesterol 162 0 - 200 mg/dL LAB CHEMISTRY METHOD 12/03/2024 10:40 AM EDT [facility] Triglycerides 84 0 - 150 mg/dL LAB CHEMISTRY METHOD 12/03/2024 10:40 AM EDT [facility] HDL 40 >=40 mg/dL LAB CHEMISTRY METHOD 12/03/2024 10:40 AM [facility] LDL Calculated 105(H) 0 - 100 mg/dL LAB CHEMISTRY METHOD 12/03/2024 10:40 AM EDT [facility] Comment:Estimated LDL Calcul ated using equation: Total cholesterol - HDL cholesterol - (Triglycerides/5) VLDL Cholesterol Amado 16.8 mg/dL LAB CHEMISTRY METHOD 12/03/2024 10:40 AM EDT [facility] Non HDL Chol. (LDL+VLDL) 122 <145 mg/dL LAB CHEMISTRY METHOD 12/03/2024 10:40 AM T [facility] Chol/HDL Ratio 4.1 0.0 - 4.4 LAB CHEMISTRY METHOD 12/03/2024 10:40 AM T [facility] Blood Venous blood specimen / Unknown Venipuncture / Unknown 12/03/2024 8:03 AM EDT 12/03/2024 8:03 AM EDT us Ema Sorensen MD LAB BLOOD ORDERABL ES Final Result [facility] [address] [place] [address], [place] [phone] * (ABNORMAL) CBC auto differential (12/03/2024 8:03 AM EDT) [facility] WBC 5.6 4.8 - 10.8 K/mcL LAB HEMETOLOGY METHOD 12/03/2024 10:21 AM [facility] RBC 4.20 3.80 - 4.80 M/mcL LAB HEMETOLOGY METHOD 12/03/2024 10:21 AM [facility] Hemoglobin 12.7 11.5 - 16.0 g/dL LAB HEMETOLOGY METHOD 12/03/2024 10:21 AM [facility] Hematocrit 39.0 35.0 - 47.0 % LAB HEMETOLOGY METHOD 12/03/2024 10:21 AM [facility] MCV 92.0 79.0 - 98.0 FL LAB HEMETOLOGY METHOD 12/03/2024 10:21 AM [facility] MCH 30.0 27.0 - 32.0 pcg LAB HEMETOLOGY METHOD 12/03/2024 10:21 AM [facility] MCHC 32.6 32.0 - 37.0 g/dL LAB HEMETOLOGY METHOD 12/03/2024 10:21 AM [facility] RDW 12.5 11.0 - 15.0 % LAB HEMETOLOGY METHOD 12/03/2024 10:21 AM [facility] Platelets 149 130 - 400 K/mcL LAB HEMETOLOGY METHOD 12/03/2024 10:21 AM [facility] MPV 11.3(H) 7.0 - 11.0 FL LAB HEMETOLOGY METHOD 12/03/2024 10:21 AM [facility] NRBC 0.0 <1.0 % LAB HEMETOLOGY METHOD 12/03/2024 10:21 AM [facility] NRBC Absolute 0.00 <0.10 K/mcL LAB HEMETOLOGY METHOD 12/03/2024 10:21 AM [facility] Neutrophils Relative 61.3 % LAB HEMETOLOGY METHOD 12/03/2024 10:21 AM [facility] Lymphocytes Relative 26.7 % LAB HEMETOLOGY METHOD 12/03/2024 10:21 AM [facility] Monocytes Relative 6.6 % LAB HEMETOLOGY METHOD 12/03/2024 10:21 AM [facility] Eosinophils Relative 4.3 % LAB HEMETOLOGY METHOD 12/03/2024 10:21 AM [facility] Basophils Relative 0.7 % LAB HEMETOLOGY METHOD 12/03/2024 10:21 AM [facility] Immature Granulocytes Relative 0.4 % LAB HEMETOLOGY METHOD 12/03/2024 10:21 AM [facility] Neutrophils Absolute 3.45 1.50 - 7.00 K/mcL LAB HEMETOLOGY METHOD 12/03/2024 10:21 AM [facility] Lymphocytes Absolute 1.50 1.00 - 5.00 K/mcL LAB HEMETOLOGY METHOD 12/03/2024 10:21 AM [facility] Monocytes Absolute 0.37 0.20 - 1.00 K/mcL LAB HEMETOLOGY METHOD 12/03/2024 10:21 AM [facility] Eosinophils Absolute 0.24 0.00 - 0.50 K/mcL LAB HEMETOLOGY METHOD 12/03/2024 10:21 AM [facility] Basophils Absolute 0.04 0.00 - 0.20 K/mcL LAB HEMETOLOGY METHOD 12/03/2024 10:21 AM [facility] Immature Granulocytes Absolute 0.02 0.00 - 0.03 K/mcL LAB HEMETOLOGY METHOD 12/03/2024 10:21 AM EDT [facility] Blood Venous blood specimen / Unknown Venipuncture / Unknown 12/03/2024 8:03 AM EDT 12/03/2024 8:03 AM EDT Ema Sorensen MD LAB BLOOD ORDERABL ES Final Result Performing Organization Address City/[facility]/ZIP Co de Phone Number [facility] [address] [place] [address], [place] [phone] * Vitamin D 25 hydroxy (12/03/2024 8:03 AM EDT) Vit D, 25-Hydroxy 41.9 30.0 - 80.0 ng/mL LAB CHEMISTRY METHOD 12/03/2024 11:34 AM EDT [facility] Blood Venous blood specimen / Unknown Venipuncture / Unknown 12/03/2024 8:03 AM EDT 12/03/2024 8:03 AM EDT us Ema Sorensen MD LAB BLOOD ORDERABL ES Final Result Performing Organization Address [facility] Co de Phone Number [facility] [address] [place] [address], [place] [phone] * Vitamin B12 (12/03/2024 8:03 AM EDT) Vitamin B-12 433 250 - 900 pcg/mL LAB CHEMISTRY METHOD 12/03/2024 10:40 AM EDT [facility] Blood Venous blood specimen / Unknown Venipuncture / Unknown 12/03/2024 8:03 AM EDT 12/03/2024 8:03 AM EDT Ema Sorensen MD LAB BLOOD ORDERABL ES Final Result Performing Organization Address City/[facility]/ZIP Co de Phone Number [facility] [address] [place] [address] [place] [address], [place] [phone] * Comprehensive metabolic panel (12/03/2024 8:03 AM EDT) Sodium 140 133 - 145 mmol/L LAB CHEMISTRY METHOD 12/03/2024 10:40 AM [facility] Potassium 4.3 3.5 - 5.5 mmol/L LAB CHEMISTRY METHOD 12/03/2024 10:40 AM [facility] Chloride 110 96 - 110 mmol/L LAB CHEMISTRY METHOD 12/03/2024 10:40 AM [facility] CO2 27 21 - 32 mmol/L LAB CHEMISTRY METHOD 12/03/2024 10:40 AM [facility] Anion Gap 3 3 - 11 LAB CHEMISTRY METHOD 12/03/2024 10:40 AM [facility] Glucose 92 70 - 100 mg/dL LAB CHEMISTRY METHOD 12/03/2024 10:40 AM [facility] BUN 23 5 - 25 mg/dL LAB CHEMISTRY METHOD 12/03/2024 10:40 AM [facility] Creatinine 0.70 0.50 - 1.10 mg/dL LAB CHEMISTRY METHOD 12/03/2024 10:40 AM [facility] eGFR 103 >=60 mL/min/1. 73m2 LAB CHEMISTRY METHOD 12/03/2024 10:40 AM [facility] Comment:Calculation based on the Chronic Kidney Disease Epidemiology Collaboration (CKD-EPI) equation refit without adjustment for race. BUN/Creatinine Ratio 32.9 LAB CHEMISTRY METHOD 12/03/2024 10:40 AM [facility] Calcium 8.6 8.5 - 10.5 mg/dL LAB CHEMISTRY METHOD 12/03/2024 10:40 AM [facility] AST (SGOT) 14 10 - 42 unit/L LAB CHEMISTRY METHOD 12/03/2024 10:40 AM [facility] ALT (SGPT) 14 10 - 60 unit/L LAB CHEMISTRY METHOD 12/03/2024 10:40 AM EDT [facility] Alkaline Phosphatase 71 42 - 121 unit/L LAB CHEMISTRY METHOD 12/03/2024 10:40 AM EDT [facility] Total Protein 6.2 6.0 - 8.0 g/dL LAB CHEMISTRY METHOD 12/03/2024 10:40 AM EDT [facility] Albumin 3.6 3.2 - 5.0 g/dL LAB CHEMISTRY METHOD 12/03/2024 10:40 AM EDT [facility] Total Bilirubin 0.5 0.0 - 1.4 mg/dL LAB CHEMISTRY METHOD 12/03/2024 10:40 AM EDT [facility] Blood Venous blood specimen / Unknown Venipuncture / Unknown 12/03/2024 8:03 AM EDT 12/03/2024 8:03 AM EDT us Ema Sorensen MD LAB BLOOD ORDERABL ES Final Result [facility] [address] [place] [address], [place] [phone] * Culture urine (11/29/2024 5:27 PM EDT) Culture, Urine <10,000 cfu/ml, insignificant count, no further workup. 11/30/2024 2:17 PM EDT [facility] Urine Urine specimen obtained by clean catch procedure / Unknown Non-blood Collection / Unknown 11/29/2024 5:27 PM EDT 11/29/2024 5:27 PM EDT us Leida Ramirez NP LAB MICROBIOLOGY - GENERAL ORD ERABLES Final Result [facility] [address] [place] [address], [place] [phone] * External Xray Report (11/01/2024 10:45 AM EDT) Anatomical Region Laterality Modality Radiographic Joann ging us Historical Provider MD MCKINNEY XR PROCEDURES Final R esult * XR Cervical Spine 4-5 Views (10/04/2024 11:25 AM EDT) Anatomical Region Laterality Modality Spine, C-spine Radiographic Joann ging 10/04/2024 12:4 1 PM EDT Impressions 10/04/2024 12:42 PM EDT 1. Moderate degenerative changes of the cervical spine. 2. Mild neuroforaminal stenosis at multiple levels -------- FINAL REPORT -------- Dictated By: Rosetta Alfaro Dictated Date: 10/04/2024 12:41 ET Assigned Physician: Rosetta Alfaro Reviewed and Electronically Signed By: Rosetta Alfaro Signed Date: 10/04/2024 12:42 ET Workstation ID: [id number] Transcribed By: Self Edit Transcribed Date: 10/04/2024 12:41 ET Narrative 10/04/2024 12:42 PM EDT HISTORY: pain TECHNIQUE: 4 views of the cervical spine COMPARISON: None FINDINGS: The cervical spine is visualized from C1-C7. Vertebral body height is maintained. Decreased disc height at C3-C4, C5-C6 and C6-C7 with endplate sclerosis. Large anterior osteophytes are present at the cervical spine. There is mild neuroforaminal stenosis at multiple levels. Mild uncovertebral arthropathy is present. Procedure Note Rosetta Alfaro MD - 10/04/2024 HISTORY: pain TECHNIQUE: 4 views of the cervical spine COMPARISON: None FINDINGS: The cervical spine is visualized from C1-C7. Vertebral body height ismaintained. Decreased disc height at C3-C4, C5-C6 and C6-C7 with endplatesclerosis. Large anterior osteophytes are present at the cervical spine.There is mild neuroforaminal stenosis at multiple levels. Milduncovertebral arthropathy is present. IMPRESSION: 1. Moderate degenerative changes of the cervical spine. 2. Mild neuroforaminal stenosis at multiple levels -------- FINAL REPORT -------- Dictated By: Rosetta Alfaro Dictated Date: 10/04/2024 12:41 ET Assigned Physician: Rosetta Alfaro Reviewed and Electronically Signed By: Rosetta Alfaro Signed Date: 10/04/2024 12:42 ET Workstation ID: [id number] Transcribed By: Self Edit Transcribed Date: 10/04/2024 12:41 ET Delia AVILES IMG XR PROCEDURES Final Result * MG Mammo Digital Screening w Ashok bilat (04/09/2024 4:22 PM EST) Anatomical Region Laterality Modality Breast Bilateral Mammography 04/10/2024 6:24 PM EST Impressions 04/10/2024 6:26 PM EST No mammographic evidence of malignancy. BI-RADS CATEGORY: 1 - NEGATIVE RECOMMENDATION: Screening bilateral mammogram is recommended in 1 year. Mammo Location: [facility], [address] [place] [address], [id number], . -------- FINAL REPORT -------- Dictated By: Kyra Alejo Dictated Date: 04/10/2024 18:24 ET Assigned Physician: Kyra Alejo Reviewed and Electronically Signed By: Kyra Alejo Signed Date: 04/10/2024 18:26 ET Workstation ID: [id number] Transcribed By: Self Edit Transcribed Date: 04/10/2024 [...] evidence of suspicious mass or architectural distortion. No worrisome calcifications are evident. There has been no significant change from prior exam(s). BREAST DENSITY: C - [...] is recommended in 1 year. Mammo Location: [facility], [address] [place] [address], [id number], . -------- FINAL REPORT -------- Dictated By: Kyra Alejo Dictated Date: 04/10/2024 18:24 ET Assigned Physician: Kyra Alejo Reviewed and Electronically Signed By: Kyra Alejo Signed Date: 04/10/2024 18:26 ET Workstation ID: [id number] Transcribed By: Self Edit Transcribed Date: 04/10/2024 18:24 ET Ema Sorensen MD IMG BI PROCEDURES Final Result * Hepatitis C Screening (11/22/2022) Hepatitis C Screening abstracted Historical Provider HEALTH MAINTENANCE Final Result * Cervical Cancer Screening: HPV (06/03/2022) Cervical Cancer Screening: HPV abstracted, negative Historical Provider HEALTH MAINTENANCE Final Result * HIV Screening (06/03/2022) HIV Screening abstracted us Historical Provider HEALTH MAINTENANCE Final Result * Colonoscopy (09/07/2016) HM Colonoscopy abstracted, no interpretation Anatomical Region Laterality Modality Other us Historical Provider HEALTH MAINTENANCE Final Result from Last 3 Months or Most Recently Relevant to Health Maintenance Insurance [facility] Care Teams Structural Iron Erector Relationship Specialty Start Date End Date Ema Sorensen MD [address] [place] [phone] PCP - General Internal Medicine 10/11/21
--- OUTSIDE RECORDS SUMMARY | 2024-12-26 08:59 | XMS_ITS | Encounter Summary ---
Author Organization [employer] Address [address] [place] [address] Care Team Providers Care Manager Sales And Marketing Name Role Phone Rosalind Sorensen MD Primary Care Prov ider Reason for Visit * Reason Onset Date Comments Advice Only 12/05/2024 Encounter Details Date Type Department Care Team (Late st Contact Info) Description 12/05/[address] [facility] [address] [place] [address] Rosalind Sorensen MD [address] [place], [place] Social History Tobacco Use Types Packs/Day Years [...] care for your loved ones. For example, child welfare consultant or elderly care for an older adult? [...] as of this encounter Progress Notes * Julianne Mcmahan RN - 12/05/2024 2:03 PM EDT Spoke with pt. She states she got her pneumonia shot on Monday and developed swelling and redness at the site . Informed her it is common side effect to have redness and swelling at injection site but if redness becomes worse or extends from site, or she develops, fever or chills to call the office. She denies all over rash, no difficulty breathing or cp . I advised the swelling and redness should improve over next day or 2 but to call office if persist . Pt. agrees * Leisa Ghosh - 12/05/2024 1:41 PM EDT Patient States she had Pneumonia shot Monday and now there area is swollen and red. Patient would like to speak with someone to see if this normal reaction. documented in this encounter Plan of Treatment Upcoming Encounters Date Type Department Care Team (Late st Contact Info) Description 04/17/2025 5:30 PM EST Appointment Radiology Department [address] [phone] 12/12/2025 3:00 PM EDT Office Visit Adult Medicine [address] [phone] Rosalind Sorensen MD [address] [place] [address] documented as of this encounter Visit Diagnoses Not on filedocumented in this encounter Additional Health Concerns Assessment Noted Time PHQ-9 Depression Total Score: 0 10/05/19 10:53 AM EDT documented as of this encounter Care Teams Manager Sales And Marketing Relationship Specialty Start Date End Date Rosalind Sorensen MD [address] [place] [address] PCP - General Internal Medicine 10/11/21 documented as of this encounter
--- OUTSIDE RECORDS SUMMARY | 2024-12-26 08:59 | XMS_ITS | Encounter Summary ---
Author Organization [email or web address] Address [address] [place] [address] Care Team Providers Care Putty And Patch Worker Name Role Phone Rosalind Sorensen MD Primary Care Prov ider Reason for Referral * Consultation (Routine) - Closed Specialty Diagnoses / Procedures Referred By Contac t Referred To Contact Orthopedic Surgery / Orthopaedic Surgery Diagnoses Joint pain in both hands Rosalind Sorensen MD [address] [place] [address] Phone: tel: fax: Miguelina Burleson, [address] [phone] Phone: tel: fax: Referral ID Status Reason Start Date Expiration Date V isits Requested Visits Authorized [id number] Closed Specialty Services Required 12/13/2024 12/13/2025 1 1 Encounter Details Date Type Department Care Team (Late st Contact Info) Description 12/13/2024 Results Follow-Up Adult Medicine [address] [phone] Rosalind Sorensen MD [address] [place] [address] Social History Tobacco Use Types Packs/Day Years [...] for your loved ones. For example, child care giver or elderly care for an older adult? [...] as of this encounter Progress Notes * Rosalind Sorensen MD - 12/21/2024 8:32 PM EDT She can get it but not strictly recommended. documented in this encounter Plan of Treatment Upcoming Encounters Date Type Department Care Team (Late st Contact Info) Description 04/17/2025 5:30 PM EST Appointment Radiology Department - [address] [phone] 12/12/2025 3:00 PM EDT Office Visit Adult Medicine [address] [phone] Rosalind Sorensen MD [address] [place] [address] Scheduled Referrals Name Type Priority Associated Diagnoses Order Schedule Ambulatory referral to Orthopedic Outpatient Referral Routine Joint pain in both hands 1 Occurrences starting 12/13/2024 until 12/13/2025 documented as of this encounter Visit Diagnoses Diagnosis Joint pain in both hands- Primary documented in this encounter Additional Health Concerns Assessment Noted Time PHQ-9 Depression Total Score: 0 10/05/19 10:53 AM EDT documented as of this encounter Care Teams Putty And Patch Worker Relationship Specialty Start Date End Date Rosalind Sorensen MD [address] [place] [address] PCP - General Internal Medicine 10/11/21 documented as of this encounter
== END 2024-12-26 09:08 | disposition home or self-care (01) ==
LOC: HO.HSM 08:33
PROVIDERS: PCP Internal Medicine; Referring Provider Internal Medicine; Visit Provider Psychiatry & Neurology Neurology
DX: I67.89 Other cerebrovascular disease (principal); D68.61 Antiphospholipid syndrome
CPT/HCPCS: 99214

== ENCOUNTER 2024-12-26 08:32 | Outpatient (REF) | payer OTHER, SELFPAY ==
[2024-12-31 13:33] LABS: Anti Nuclear Antibody Screen NEGATIVE (NEGATIVE)
== END 2024-12-26 08:33 | disposition home or self-care (01) ==
LOC: HO.LAB 08:32
PROVIDERS: PCP Internal Medicine; Referring Provider Internal Medicine; Visit Provider Psychiatry & Neurology Neurology
DX: D68.61 Antiphospholipid syndrome (principal); I67.89 Other cerebrovascular disease; Z01.84 Encounter for antibody response examination
CPT/HCPCS: 36415; 86038; 86147; 86225

== ENCOUNTER 2025-01-31 12:49 | Outpatient (AMB) | payer OTHER, SELFPAY ==
--- OUTSIDE RECORDS SUMMARY | 2024-11-29 14:15 | XMS_ITS | Encounter Summary ---
Author Organization [facility] Address [address] [place] [address] Care Team Providers Care County Judge Name Role Phone Rosalind Sorensen MD Primary Care Prov ider Reason for Visit * Reason Comments UTI Urgency, pain in hip . X3 days getting worse Encounter Details Date Type Department Care Team (Late st Contact Info) Description 11/29/2024 3:15 PM EDT [facility] [address], [place] [phone] Hema Azul, MSUA [address] [place], [place] SI (sacroiliac) joint dysfunction (Primary Dx); Dysuria Social History Tobacco Use Types Packs/Day Years Used Date Smoking Tobacco: Never Smokeless Tobacco: Never Alcohol Use Standard Drinks/Week Comments Yes 0 (1 standard drink = 0.6 oz pur e alcohol) weekends Housing Instability Answer Date Recorde d Are you worried that in the next 2 months you may not have stable housing? Patient declined 10/04/2024 Food Access & Nutrition Answer Date Rec orded Do you have access to a vari ety of food including fruits and vegetables? Yes 10/04/2024 Health Literacy Answer Date Recorded How often do you need to hav e someone help you when you read instructions, pamphlets, or other written material from your doctor or pharmacy? Never 10/04/2024 Caregiver: How often do you need to have someone help you when you read instructions, pamphlets, or other written material from your doctor or pharmacy? Not on file 10/04/2024 Financial Risk Answer Date Recorded How hard is it for you to pa y for the very basics like food, housing, medical care, and air conditioning / heating? Not very hard 10/04/2024 Transportation Answer Date Recorded Has the lack of transportati on kept you from meetings, work, or from getting things needed for daily living? Patient declined 10/04/2024 Has the lack of transportati on kept you from medical appointments or from getting medications? Patient declined 10/04/2024 Social Isolation Answer Date Recorded How often do you feel lonely or isolated from th ose around you? Never 10/04/2024 Food Risk Answer Date Recorded Within the past 12 months we worried whether our food would run out before we got money to buy more. Never true 10/04/2024 Within the past 12 months th e food we bought just didn't last and we didn't have money to get more. Never true 10/04/2024 Dependent Care Answer Date Recorded Do you need help finding or paying for care for your loved ones. For example, early childhood education specialist or elderly care for an older adult? Patient declined 10/04/2024 Education Answer Date Recorded Do you think completing more education or training, like finishing a GED, going to college, or learning a trade, would be helpful for you? Patient declined 10/04/2024 Employment and Income Answer Date Recor ded During the last four weeks, have you been actively looking for work? Patient declined 10/04/2024 Living Situation Answer Date Recorded What is your living situation? Unrecognized valu e 10/04/2024 Comments No Sex and Gender Information Value Date Recorded Sex Assigned at Not on file Legal Sex Female 6:51 PM EST Gender Identity Not on file Sexual Orientation Not on file documented as of this encounter Last Filed Vital Signs Vital Sign Reading Time Taken Comments Blood Pressure 110/68 11/29/2024 3:23 PM EDT Pulse 81 11/29/2024 3:23 PM EDT Temperature - - Respiratory Rate - - Oxygen Saturation 98% 11/29/2024 3:23 PM EDT Inhaled Oxygen Concentration - - Weight - - Height - - Body Mass Index - - documented in this encounter Ordered Prescriptions Prescription Sig Dispense Quantity Refills Last Filled Start Date End Date diclofenac (Cataflam) 50 mg tablet Take 1 tablet (50 mg total) by mouth 2 (two) times a day for 10 days. 20 each 11/29/2024 cyclobenzaprine (FLEXERIL) 10 mg tablet Take 1 tablet (10 mg total) by mouth at bedtime as needed for muscle spasms. 30 tablet 11/29/2024 documented in this encounter Progress Notes * Hema Azul NP - 11/29/2024 3:15 PM EDTAddended by: HEMA AZUL on: 11/29/2024 05:25 PM Modules accepted: Orders * Hema Azul NP - 11/29/2024 3:15 PM EDT CHIEF COMPLAINT: UTI (Urgency, pain in hip. X3 days getting worse ) HPI: Rosalind Cummins is a 54 y.o. old female patient with urinary urgency and left hip pain x 3 days. Patient states hip pain worsens when she sits on the toilet to urinate. Patient denies any suprapubic pain no urgency frequency or burning. Patient denies any fever chills gross hematuria or flankpain. Patient does note lower buttock pain no radiation down the leg ROS: Remainder of the 12 point review of symptoms unremarkable except for those idenitified in the HPI. PAST MEDICAL HISTORY: Patient Active Problem List Diagnosis Date Noted Spondylosis of cervical region without myelopathy or radiculopathy 10/04/2024 Low vitamin D level 05/02/2024 History of pulmonary embolism Chronic midline thoracic back pain 12/04/2023 History of non-ST elevation myocardial infarction (NSTEMI) 11/22/2022 Corneal erosion 11/20/2020 Mass of uterine cervix 12/06/2018 White matter abnormality on MRI of brain 12/06/2018 Iron deficiency anemia due to chronic blood loss 11/20/2018 Menorrhagia with irregular cycle 11/20/2018 IUD (intrauterine device) in place 06/17/2015 Vitamin D deficiency 06/24/2011 Allergic rhinitis 03/09/2010 Past Surgical History: Procedure Laterality Date SECTION PROCEDURE: HISTORICAL DELIVERY; COMMENT: x1 EYE SURGERY Bilateral PROCEDURE: HISTORICAL EYE SURGERY; COMMENT: Lasik OTHER SURGICAL HISTORY PROCEDURE: NE UNLISTED LAPAROSCOPY PROCEDURE UTERUS; COMMENT: fibroid removal SOCIAL HISTORY: Social History Tobacco Use Smoking status: Never Smokeless tobacco: Never Substance Use Topics Alcohol use: Yes Comment: weekends FAMILY HISTORY: Family History Problem Relation Name Age of [...] cancer Neg Hx Uterine cancer Neg Hx Family Status Relation Name Status Mother Alive foot problems Father Alive htn Sister Alive Sister Alive Brother Alive Brother Alive PGF (Not Specified) PGM (Not Specified) Sister (Not Specified) Sister (Not Specified) Daughter (Not Specified) MGM (Not Specified) MGF (Not Specified) Other (Not Specified) Neg Hx (Not Specified) No partnership data on file MEDICATIONS DISCONTINUED/REORDERED: There are no discontinued medications. ACTIVE MEDICATIONS: No outpatient medications have been marked as taking for the 11/29/24 encounter (Office Visit) with Hema Azul NP. ALLERGIES: No Known Allergies PHYSICAL EXAM: There were no vitals filed for this visit. CONSTITUTIONAL: alert, calm, cooperative, in no acute distress SKIN: warm and dry HEART: S1, S2 normal, regular rate and rhythm, no murmurs, rubs, gallops LUNGS: clear to auscultation bilaterally, no wheezes, rales, rhonchi ABDOMEN: soft, nontender, nondistended, bowel sounds present, no guarding or rigidity, no hepatosplenomegaly EXTREMITIES: no clubbing, cyanosis, or edema PSYCH: mood/affect full range, speech clear, good eye contact, cooperative with exam LABS/IMAGING: Urine POC Color yellow Appearance clear Specific gravity 1.020 pH 5 Negative leukocytes nitrates glucose ketones bilirubin Trace protein trace blood IMPRESSION: SI dysfunction PLAN: The patient's PMH, problem list and medications were reviewed in reference to the above diagnosis/diagnoses. Ice to affected area Flexeril and diclofenac sent to pharmacy Exercises discussed Advised to follow up with PCP if symptoms do not improve. Advised to follow up with UC or PCP immediately for new or worsening symptoms. Educated on red flags symptoms. Advised to go to the ER or call 911 for these symptoms. Patient understands the plan. Patient verbalizes agreement with the plan. No orders of the defined types were placed in this encounter. Hema Azul NP on 11/29/2024 at 3:24 PM EDT Today's documentation was made using voice recognition software. This note may contain grammatical errors secondary to this software. documented in this encounter Plan of Treatment Upcoming Encounters Date Type Department Care Team (Late st Contact Info) Description 04/17/2025 5:30 PM EST Appointment Radiology Department - [address] [phone] 12/12/2025 3:00 PM EDT Office Visit Adult Medicine [facility] - [address] [phone] Rosalind Sorensen MD [address] [place] [address] documented as of this encounter Procedures Procedure Name Priority Date/Time Associated Diagnosis Comments POC URINE NON-AUTO W/O MICRO Routine 01/28/2025 2:37 PM EST Dysuria CULTURE URINE Routine 11/29/2024 5:27 PM EDT Dysuria documented in this encounter Results * (ABNORMAL) POC Urine Non-Auto W/O Micro (01/28/2025 2:37 PM EST) GLUCOSE POC Negative Negative, Trace mg/dL Leukocytes UA POC Negative Negative mg/dL Nitrite UA POC Negative Urobilinogen UA POC 0.2 E.U./dL mg/dL Protein UA POC Positive Positive, Negative PH UA POC 5.0 MARTIN/HM UA POC Trace(A) Negative Specific Leander UA POC 1.020 Ketones UA POC Negative Negative Bilirubin UA POC Negative Negative Urine Urine specimen obtained by clean catch procedure / Unknown 01/28/2025 2:37 PM EST us Hema Azul NP POINT OF CARE TEST ENTER/EDIT ORDERABLES Final Result * Culture urine (11/29/2024 5:27 PM EDT) Culture, Urine <10,000 cfu/ml, insignificant count, no further workup. 11/30/2024 2:17 PM EDT [facility] Urine Urine specimen obtained by clean catch procedure / Unknown Non-blood Collection / Unknown 11/29/2024 5:27 PM EDT 11/29/2024 5:27 PM EDT us Hema Azul NP LAB MICROBIOLOGY - GENERAL ORD ERABLES Final Result [facility] [address] [place] [address], documented in this encounter Visit Diagnoses Diagnosis SI (sacroiliac) joint dysfunction- Primary Nonallopathic lesion of sacral region, not elsewhere classified Dysuria documented in this encounter Discontinued Medications Medication Sig Discontinue Reason Start Date End Da te cyclobenzaprine (FLEXERIL) 5 mg tablet Take 1 tablet (5 mg total) by mouth at bedtime as needed for muscle spasms. 02/07/2024 03/08/2024 documented as of this encounter Additional Health Concerns Assessment Noted Time PHQ-9 Depression Total Score: 0 10/05/19 25 10:53 AM EDT documented as of this encounter Care Teams County Judge Relationship Specialty Start Date End Date Rosalind Sorensen MD [address] [place] [address] PCP - General Internal Medicine 10/11/21 documented as of this encounter
[2025-01-31 12:57] VITALS: BMI 28.3
--- NOTE | 2025-01-31 12:57 | A.PHYSOV_ITS ---
Vital Signs 01/31/25 12:57 Height 5 ft 4 in Weight 165 lb BMI 28.3 Intake Visit Reasons: MRI followup Intake Note: Patient is a 54 year old female here today for MRI follow up. Sample Prep Technician Required: No Allergies bee pollen (bee stings) Adverse Reaction (Verified 01/31/25 12:58) Swelling HPI Comments Details: Ms. Vanegas is a 54-year-old female seen in evaluation today for low back pain. Patient reports pain level today a 4/10. Symptoms are worse over the lower and midthoracic spine. She has completed conservative treatment by completing 6 weeks of physical therapy. She has been using Tylenol for pain. I ordered MRI of the lumbar spine and we are reviewing in person today. MRI of the lumbar spine does confirm annular tear at L4-5. Otherwise she has disc desiccation throughout and mild facet arthropathy. [facility] Medical History (Updated 01/31/25 @ 14:05 by TRACI De Jesus) Pulmonary embolism Eye problem Anemia Surgical History H/O colonoscopy History of surgery Social History Alcohol intake: current Alcohol intake frequency: holidays/special occasions only Patient Tobacco Use Status: Never used Tobacco Review of Systems Narrative Low back pain, no incontinence, saddle anesthesia or urinary retention. Physical Exam Exam Exam: Lumbar Spine: Examination of her lumbar spine, there is no visible swelling or deformity. She is tender to lower lumbar facets. She is otherwise nontender. Full range of motion of the lumbar spine. She does have an increase in pain with facet loading. Special Tests: Lhermittes sign was negative Heel Toe walk is normal Left straight leg raise: Negative Right straight leg raise: Negative Special tests Esther test is negative Ganslen's test is negative SI Joint compression test negative Garret test negative Piriformis stretch is negative Lower Extremities: Full range of motion bilateral lower extremities. No calf pain or edema. Neuro: Sensation: Intact to lower extremities bilaterally Strength L2 (Psoas): 5/5 on the left and 5/5 on the right. L3 (Quads): 5/5 on the left and 5/5 on the right. L4 (Ant tibialis): 5/5 on the left and 5/5 on the right. L5 (EHL) 5/5 on the left and 5/5 on the right. S1 (Gastroc): 5/5 on the left and 5/5 on the right. DTR L4: (Patellar) Left 2 Right 2 S1: (Achilles) Left 2 Right 2 Babinski Downgoing No pathologic clonus. No involuntary movement. Vital Signs: BMI result Body Mass Index 28.3 Assessment & Plan Assessment & Plan (1) Vertebrogenic low back pain: Code(s): M54.51 - Vertebrogenic low back pain Category: Medical (2) Lumbar spondylosis: Code(s): M47.816 - Spondylosis without myelopathy or radiculopathy, lumbar region Category: Medical Plan Ms. Vanegas is a 54-year-old female seen in evaluation today for low back pain. Patient does report her symptoms are improving. She has failed conservative treatment by completing physical therapy and using medication as prescribed. If her symptoms worsen she may benefit from L5-S1 ANA secondary to annular tear at L4-5. Patient will be starting physical therapy with regards to her cervical spine, if her symptoms do not markedly improved recommend follow-up and we will consider MRI of the cervical spine. We discussed the benefits of proper nutrition and exercise to maintain a healthy body weight to improve longevity and function. We also discussed the benefits of proper lifting techniques, core strengthening and proper posture. Thank you for allowing me to participate in the care of your patient. Coding Level of Care Code Tele Est Pt Level 3 (64453) Diagnoses Vertebrogenic low back pain M54.51 Lumbar spondylosis M47.816
--- OUTSIDE RECORDS SUMMARY | 2025-01-31 13:11 | XMS_ITS | Encounter Summary ---
Author Organization [employer] Address [address] [place] [address] Care Team Providers Care Assistant Associate Professor Name Role Phone Rosalind Sorensen MD Primary Care Prov ider Reason for Referral * Consultation (Routine) - Closed Specialty Diagnoses / Procedures Referred By Contac t Referred To Contact Orthopedic Surgery / Orthopaedic Surgery Diagnoses Joint pain in both hands Roaslind Sorensen MD [address] [place] [address] Phone: tel: fax: Miguelina Burleson, PA [address] [place] [phone] Phone: tel: fax: Referral ID Status Reason Start Date Expiration Date V isits Requested Visits Authorized [id number] Closed Specialty Services Required 12/13/2024 12/13/2025 1 1 Encounter Details Date Type Department Care Team (Late st Contact Info) Description 12/13/2024 Results Follow-Up Adult Medicine [address] [phone] Rosalind Sorensen MD [address] [place] [address] Social History Tobacco Use Types Packs/Day Years [...] for your loved ones. For example, child caregiver private home or elderly care for an older adult? [...] 5:30 PM EST Appointment Radiology Department - [address] [phone] 12/12/2025 3:00 PM EDT Office Visit Adult Medicine [address] [phone] Rosalind Sorensen MD [address] [place] [address] Scheduled Referrals Name Type Priority Associated Diagnoses [...] documented as of this encounter Care Teams Assistant Associate Professor Relationship Specialty Start Date End Date Rosalind Sorensen MD [address] [place] [address] PCP - General Internal Medicine 10/11/21 documented as of this encounter
--- OUTSIDE RECORDS SUMMARY | 2025-01-31 13:11 | XMS_ITS | Clinical Summary ---
Author Organization [address] [facility] Address [address] [place] [address] Phone Care Team Providers Care Foreign Banknote Teller Name Role Phone Ema Sorensen MD Primary [...] mouth 1 (one) time each day. Active cyclobenzaprine (FLEXERIL) 10 mg tablet Take 1 tablet (10 mg total) by mouth at bedtime as needed for muscle spasms. 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 Aguilar in Oncology at [facility] and he agrees. He will see her [...] Encounters Date Type Department Care Team Description 01/10/2025 3:56 PM EDT - 01/10/2025 11:59 PM EDT Hospital Encounter Radiology Department - [address] [phone] Radiculopathy, lumbar region Discharge Disposition: Home or Self Care 12/19/2024 3:45 PM EDT Consult Orthopedic Surgery [address] [place] [address] Miguelina Burleson PA Hand pain (Primary Dx) 12/13/2024 Results Follow-Up Adult Medicine [address] [phone] Ema Carty MD 12/05/2024 Telephone Adult [address] [phone] Ema Carty MD 12/02/2024 3:00 PM EDT Office Visit [address] [phone] Ema Carty MD Adult general medical examination (Primary Dx); Encounter for lipid screening for cardiovascular disease; Low vitamin D level; Need for vaccination against Streptococcus pneumoniae 11/29/2024 3:15 PM EDT Office Visit Walk-In Clinic - [address] [phone] Leida Ramirez NP SI (sacroiliac) joint dysfunction (Primary Dx); Dysuria 11/29/2024 Telephone Adult [address] [phone] Ema Carty MD 10/31/2024 Telephone Adult Medicine [address] [phone] Ema Carty MD from Last 3 Months Immunizations Immunization [...] SURGERY; COMMENT: Lasik OTHER SURGICAL HISTORY PROCEDURE: IN UNLISTED LAPAROSCOPY PROCEDURE UTERUS; COMMENT: fibroid removal [...] for your loved ones. For example, child psychiatrist or elderly care for an older adult? [...] 04/17/2025 5:30 PM EST Appointment Radiology Department [address] [place] [phone] 12/12/2025 3:00 PM EDT Office Visit Adult Medicine [address] [phone] Ema Sorensen MD [address] [place], [place] Health Maintenance Due Date Last Done Comments [...] MICRO Routine 01/28/2025 2:37 PM EST Dysuria MR LUMBAR SPINE WO CONTRAST Routine 01/10/2025 4:31 PM EDT Radiculopathy, lumbar region XR HAND 3+ VIEWS BILAT Routine 12/19/2024 [...] XRAY REPORT Routine 11/01/2024 10:45 AM EDT MG MAMMO DIGITAL SCREENING W ASHOK BILAT Routine 04/09/2024 4:22 PM EST Encounter for screening mammogram for breast cancer HEPATITIS C SCREENING Routine 11/22/2022 HPV Routine 06/03/2022 HIV SCREENING Routine 06/03/2022 COLONOSCOPY Routine 09/07/2016 from Last 3 Months or Most Recently Relevant to Health Maintenance Results * (ABNORMAL) POC Urine Non-Auto W/O Micro (01/28/2025 2:37 PM EST) GLUCOSE POC Negative Negative, Trace mg/dL Leukocytes UA POC Negative Negative mg/dL Nitrite UA POC Negative Urobilinogen UA POC 0.2 E.U./dL mg/dL Protein UA POC Positive Positive, Negative PH UA POC 5.0 MARTIN/HM UA POC Trace(A) Negative Specific Cut Off UA POC 1.020 Ketones UA POC Negative Negative Bilirubin UA POC Negative Negative Urine Urine specimen obtained by clean catch procedure / Unknown 01/28/2025 2:37 PM EST Leida Ramirez NP POINT OF CARE TEST ENTER/EDIT ORDERABLES Final Result * MR Lumbar Spine wo Contrast (01/10/2025 4:31 PM EDT) Anatomical Region Laterality Modality L-spine, Spine Magnetic Resonan ce 01/10/2025 3:51 PM EDT Impressions 01/14/2025 9:34 AM EST Multilevel bony and discogenic degenerative changes as described. No focal nerve root compression. -------- FINAL REPORT -------- Dictated By: Lois Arteaga Dictated Date: 01/10/2025 16:51 ET Assigned Physician: Lois Arteaga Reviewed and Electronically Signed By: Lois Arteaga Signed Date: 01/14/2025 09:34 ET Workstation ID: [id number] Transcribed By: Self Edit Transcribed Date: 01/14/2025 09:20 ET Narrative 01/14/2025 9:34 AM EST MR LUMBAR SPINE WO CONTRAST MR OF THE LUMBAR SPINE WITHOUT CONTRAST HISTORY: Neck and low back pain with radiculopathy. Technique: MR of the lumber spine was performed without contrast utilizing the standard departmental protocol. COMPARISON: None. FINDINGS: Conus medullaris terminates at the [L2] level, and demonstrates normal signal. There is no abnormal thickening or clumping of the cauda equina nerve roots. There is normal alignment of the lumbar spine. Vertebral body heights are normal. Marrow signal is normal. There is a 1.5 cm rounded hyperintense lesion in the midpole of the left kidney on the coronal sequence, statistically representing a cyst. At T12-L1, no significant disc herniation, central spinal canal stenosis or neuroforaminal narrowing is demonstrated on the sagittal sequences. At L1-L2, no significant disc herniation, central spinal canal stenosis or neuroforaminal narrowing. At L2-L3, there is disc desiccation and mild disc bulging. No central spinal canal stenosis or neuroforaminal narrowing. At L3-L4, there is disc desiccation and mild disc bulging. No central spinal canal stenosis or neuroforaminal narrowing. At L4-L5, there is disc desiccation, ligamentous bulging and mild facet arthropathy. There is disc bulging with tear of the annulus at the left posterior disc margin and small central disc protrusion/bulge. No central spinal canal stenosis or foraminal narrowing. At L5-S1, no significant disc herniation, central spinal canal stenosis or neuroforaminal narrowing. There is mild facet arthropathy. Procedure Note Lois Arteaga MD - 01/14/2025 MR LUMBAR SPINE WO CONTRAST MR OF THE LUMBAR SPINE WITHOUT CONTRAST HISTORY: Neck and low back pain with radiculopathy. Technique: MR of the lumber spine was performed without contrast utilizingthe standard departmental protocol. COMPARISON: None. FINDINGS: Conus medullaris terminates at the [L2] level, and demonstratesnormal signal. There is no abnormal thickening or clumping of the caudaequina nerve roots. There is normal alignment of the lumbar spine.Vertebral body heights are normal. Marrow signal is normal. There is a 1.5cm rounded hyperintense lesion in the midpole of the left kidney on thecoronal sequence, statistically representing a cyst. At T12-L1, no significant disc herniation, central spinal canal stenosisor neuroforaminal narrowing is demonstrated on the sagittal sequences. At L1-L2, no significant disc herniation, central spinal canal stenosis orneuroforaminal narrowing. At L2-L3, there is disc desiccation and mild disc bulging. No centralspinal canal stenosis or neuroforaminal narrowing. At L3-L4, there is disc desiccation and mild disc bulging. No centralspinal canal stenosis or neuroforaminal narrowing. At L4-L5, there is disc desiccation, ligamentous bulging and mild facetarthropathy. There is disc bulging with tear of the annulus at the leftposterior disc margin and small central disc protrusion/bulge. No centralspinal canal stenosis or foraminal narrowing. At L5-S1, no significant disc herniation, central spinal canal stenosis orneuroforaminal narrowing. There is mild facet arthropathy. IMPRESSION: Multilevel bony and discogenic degenerative changes as described. No focalnerve root compression. -------- FINAL REPORT -------- Dictated By: Lois Arteaga Dictated Date: 01/10/2025 16:51 ET Assigned Physician: Lois Arteaga Reviewed and Electronically Signed By: Lois Arteaga Signed Date: 01/14/2025 09:34 ET Workstation ID: [id number] Transcribed By: Self Edit Transcribed Date: 01/14/2025 09:20 ET Jarvis MCKINNEY MRI PROCEDURES Final Resul t * XR Hand 3+ Views bilat (12/19/2024 [...] changes bilateral hands and no acute findings Miguelina M Burleson PA IMG XR PROCEDURES Final Resul t * (ABNORMAL) Lipid panel with reflex to direct LDL (12/03/2024 8:03 AM EDT) Cholesterol 162 0 - 200 mg/dL LAB CHEMISTRY METHOD 12/03/2024 10:40 AM EDT [facility] Triglycerides 84 0 - 150 mg/dL LAB CHEMISTRY METHOD 12/03/2024 10:40 AM EDT [facility] HDL 40 >=40 mg/dL LAB CHEMISTRY METHOD 12/03/2024 10:40 AM EDT [facility] LDL Calculated 105(H) 0 - 100 mg/dL LAB CHEMISTRY METHOD 12/03/2024 10:40 AM EDT [facility] Comment:Estimated LDL Calcul ated using equation: Total cholesterol - HDL cholesterol - (Triglycerides/5) VLDL Cholesterol Amado 16.8 mg/dL LAB CHEMISTRY METHOD 12/03/2024 10:40 AM EDT [facility] Non HDL Chol. (LDL+VLDL) 122 <145 mg/dL LAB CHEMISTRY METHOD 12/03/2024 10:40 AM EDT [facility] Chol/HDL Ratio 4.1 0.0 - 4.4 LAB CHEMISTRY METHOD 12/03/2024 10:40 AM T [facility] Blood Venous blood specimen / Unknown Venipuncture / Unknown 12/03/2024 8:03 AM EDT 12/03/2024 8:03 AM EDT us Ema Sorensen MD LAB BLOOD ORDERABL ES Final Result [facility] [address] [place] [address], [place] [phone] * (ABNORMAL) CBC auto differential (12/03/2024 8:03 AM EDT) WBC 5.6 4.8 - 10.8 K/mcL LAB HEMETOLOGY METHOD 12/03/2024 10:21 AM [facility] RBC 4.20 3.80 - 4.80 M/mcL LAB HEMETOLOGY METHOD 12/03/2024 10:21 AM [facility] Hemoglobin 12.7 11.5 - 16.0 g/dL LAB HEMETOLOGY METHOD 12/03/2024 10:21 AM [facility] Hematocrit 39.0 35.0 - 47.0 % LAB HEMETOLOGY METHOD 12/03/2024 10:21 AM [facility] MCV 92.0 79.0 - 98.0 FL LAB HEMETOLOGY METHOD 12/03/2024 10:21 AM [facility] MCH 30.0 27.0 - 32.0 pcg LAB HEMETOLOGY METHOD 12/03/2024 10:21 AM [facility] MCHC 32.6 32.0 - 37.0 g/dL LAB HEMETOLOGY METHOD 12/03/2024 10:21 AM [facility] RDW 12.5 11.0 - 15.0 % LAB HEMETOLOGY METHOD 12/03/2024 10:21 AM [facility] Platelets 149 130 - 400 K/mcL LAB HEMETOLOGY METHOD 12/03/2024 10:21 AM [facility] MPV 11.3(H) 7.0 - 11.0 FL LAB HEMETOLOGY METHOD 12/03/2024 10:21 AM [facility] NRBC 0.0 <1.0 % LAB HEMETOLOGY METHOD 12/03/2024 10:21 AM [facility] NRBC Absolute 0.00 <0.10 K/mcL LAB HEMETOLOGY METHOD 12/03/2024 10:21 AM [facility] Neutrophils Relative 61.3 % LAB HEMETOLOGY METHOD 12/03/2024 10:21 AM [facility] Lymphocytes Relative 26.7 % LAB HEMETOLOGY METHOD 12/03/2024 10:21 AM [facility] Monocytes Relative 6.6 % LAB HEMETOLOGY METHOD 12/03/2024 10:21 AM [facility] Eosinophils Relative 4.3 % LAB HEMETOLOGY METHOD 12/03/2024 10:21 AM [facility] Basophils Relative 0.7 % LAB HEMETOLOGY METHOD 12/03/2024 10:21 AM [facility] Immature Granulocytes Relative 0.4 % LAB HEMETOLOGY METHOD 12/03/2024 10:21 AM [facility] Neutrophils Absolute 3.45 1.50 - 7.00 K/mcL LAB HEMETOLOGY METHOD 12/03/2024 10:21 AM [facility] Lymphocytes Absolute 1.50 1.00 - 5.00 K/mcL LAB HEMETOLOGY METHOD 12/03/2024 10:21 AM [facility] Monocytes Absolute 0.37 0.20 - 1.00 K/mcL LAB HEMETOLOGY METHOD 12/03/2024 10:21 AM [facility] Eosinophils Absolute 0.24 0.00 - 0.50 K/mcL LAB HEMETOLOGY METHOD 12/03/2024 10:21 AM [facility] Basophils Absolute 0.04 0.00 - 0.20 K/mcL LAB HEMETOLOGY METHOD 12/03/2024 10:21 AM [facility] Immature Granulocytes Absolute 0.02 0.00 - 0.03 K/mcL LAB HEMETOLOGY METHOD 12/03/2024 10:21 AM [facility] Blood Venous blood specimen / Unknown Venipuncture / Unknown 12/03/2024 8:03 AM EDT 12/03/2024 8:03 AM EDT Ema Sorensen MD LAB BLOOD ORDERABL ES Final Result Performing Organization Address City/[facility]/ZIP Co de Phone Number [facility] [address] [place] [address], [place] [phone] * Vitamin D 25 hydroxy (12/03/2024 8:03 AM EDT) [facility] Vit D, 25-Hydroxy 41.9 30.0 - 80.0 ng/mL LAB CHEMISTRY METHOD 12/03/2024 11:34 AM EDT [facility] Blood Venous blood specimen / Unknown Venipuncture / Unknown 12/03/2024 8:03 AM EDT 12/03/2024 8:03 AM EDT Ema Sorensen MD LAB BLOOD ORDERABL ES Final Result Performing Organization Address [facility]/ZIP Co de Phone Number [facility] [address] [place] [address], [place] [phone] * Vitamin B12 (12/03/2024 8:03 AM EDT) [facility] Vitamin B-12 433 250 - 900 pcg/mL LAB CHEMISTRY METHOD 12/03/2024 10:40 AM EDT [facility] Blood Venous blood specimen / Unknown Venipuncture / Unknown 12/03/2024 8:03 AM EDT 12/03/2024 8:03 AM EDT Ema Sorensen MD LAB BLOOD ORDERABL ES Final Result Performing Organization Address [facility]/ZIP Co de Phone Number [facility] [address] [place] [address], [place] [phone] * Comprehensive metabolic panel (12/03/2024 8:03 AM EDT) [facility] Sodium 140 133 - 145 mmol/L LAB CHEMISTRY METHOD 12/03/2024 10:40 AM [facility] Potassium 4.3 3.5 - 5.5 mmol/L LAB CHEMISTRY METHOD 12/03/2024 10:40 AM [facility] Chloride 110 96 - 110 mmol/L LAB CHEMISTRY METHOD 12/03/2024 10:40 AM [facility] CO2 27 21 - 32 mmol/L LAB CHEMISTRY METHOD 12/03/2024 10:40 AM [facility] Anion Gap 3 3 - 11 LAB CHEMISTRY METHOD 12/03/2024 10:40 AM [facility] Glucose 92 70 - 100 mg/dL LAB CHEMISTRY METHOD 12/03/2024 10:40 AM [facility] BUN 23 5 - 25 mg/dL LAB CHEMISTRY METHOD 12/03/2024 10:40 AM [facility] Creatinine 0.70 0.50 - 1.10 mg/dL LAB CHEMISTRY METHOD 12/03/2024 10:40 AM [facility] eGFR 103 >=60 mL/min/1. 73m2 LAB CHEMISTRY METHOD 12/03/2024 10:40 AM [facility] Comment:Calculation based on the Chronic Kidney Disease Epidemiology Collaboration (CKD-EPI) equation refit without adjustment for race. BUN/Creatinine Ratio 32.9 LAB CHEMISTRY METHOD 12/03/2024 10:40 AM [facility] Calcium 8.6 8.5 - 10.5 mg/dL LAB CHEMISTRY METHOD 12/03/2024 10:40 AM [facility] AST (SGOT) 14 10 - 42 unit/L LAB CHEMISTRY METHOD 12/03/2024 10:40 AM [facility] ALT (SGPT) 14 10 - 60 unit/L LAB CHEMISTRY METHOD 12/03/2024 10:40 AM [facility] Alkaline Phosphatase 71 42 - 121 unit/L LAB CHEMISTRY METHOD 12/03/2024 10:40 AM EDT [facility] Total Protein 6.2 6.0 - 8.0 g/dL LAB CHEMISTRY METHOD 12/03/2024 10:40 AM EDT [facility] Albumin 3.6 3.2 - 5.0 g/dL LAB CHEMISTRY METHOD 12/03/2024 10:40 AM EDT [facility] Total Bilirubin 0.5 0.0 - 1.4 mg/dL LAB CHEMISTRY METHOD 12/03/2024 10:40 AM EDT [facility] Blood Venous blood specimen / Unknown Venipuncture / Unknown 12/03/2024 8:03 AM EDT 12/03/2024 8:03 AM EDT Ema Sorensen MD LAB BLOOD ORDERABL ES Final Result Performing Organization Address [facility]/ZIP Co de Phone Number [facility] [address] [place] [address], [place] [phone] * Culture urine (11/29/2024 5:27 PM EDT) Culture, Urine <10,000 cfu/ml, insignificant count, no further workup. 11/30/2024 2:17 PM EDT [facility] Urine Urine specimen obtained by clean catch procedure / Unknown Non-blood Collection / Unknown 11/29/2024 5:27 PM EDT 11/29/2024 5:27 PM EDT Leida Ramirez NP LAB MICROBIOLOGY - GENERAL ORD ERABLES Final Result [facility] [address] [place] [address], [place] [phone] * External Xray Report (11/01/2024 10:45 AM EDT) Anatomical Region Laterality Modality Radiographic Joann ging Historical Provider MD IMG XR PROCEDURES Final R esult * MG Mammo Digital Screening w Ashok bilat (04/09/2024 4:22 PM EST) Anatomical Region Laterality Modality Breast Bilateral Mammography 04/10/2024 6:24 PM EST Impressions 04/10/2024 6:26 PM EST No mammographic evidence of malignancy. BI-RADS CATEGORY: 1 - NEGATIVE RECOMMENDATION: Screening bilateral mammogram is recommended in 1 year. Mammo Location: [facility], [address] [place] [address], [id number], . -------- FINAL REPORT -------- Dictated By: Kyra Alejo Dictated Date: 04/10/2024 18:24 ET Assigned Physician: Kyra Alejo Reviewed and Electronically Signed By: Kyra Alejo Signed Date: 04/10/2024 18:26 ET Workstation ID: [id number] Transcribed By: Self Edit Transcribed Date: 04/10/2024 [...] is recommended in 1 year. Mammo Location: [facility], [address] [place] [address], [id number], . -------- FINAL REPORT -------- Dictated By: Kyra Alejo Dictated Date: 04/10/2024 18:24 ET Assigned Physician: Kyra Alejo Reviewed and Electronically Signed By: Kyra Alejo Signed Date: 04/10/2024 18:26 ET Workstation ID: [id number] Transcribed By: Self Edit Transcribed Date: 04/10/2024 18:24 ET Ema Sorensen MD IMG BI PROCEDURES Final Result * Hepatitis C Screening (11/22/2022) Pathologist [facility] Hepatitis C Screening abstracted Result [facility] Provider HEALTH MAINTENANCE Final Result * Cervical Cancer Screening: HPV (06/03/2022) [facility] Cervical Cancer Screening: HPV abstracted, negative [facility] HEALTH MAINTENANCE Final Result * HIV Screening (06/03/2022) [facility] HIV Screening abstracted [facility] Provider HEALTH MAINTENANCE Final Result * Colonoscopy (09/07/2016) [facility] Colonoscopy abstracted, no interpretation Anatomical Region Laterality Modality Other [facility] Provider HEALTH MAINTENANCE Final Result from Last 3 Months or Most Recently Relevant to Health Maintenance Insurance [facility] Care Teams Foreign Banknote Teller Relationship Specialty Start Date End Date Ema Sorensen MD [address] [place] [phone] PCP - General Internal Medicine 10/11/21
== END 2025-01-31 13:16 | disposition home or self-care (01) ==
LOC: HO.HPHYS 12:49
PROVIDERS: PCP Internal Medicine; Visit Provider Physician Assistant
DX: M54.51 Vertebrogenic low back pain (principal); M47.816 Spondylosis without myelopathy or radiculopathy, lumbar region
CPT/HCPCS: 99213